=== PATIENT | female | born 1950 | race Caucasian/White ===

== ENCOUNTER 2017-03-20 17:51 | Emergency (ER) | payer SELFPAY ==
[~2017-03-20] VITALS: Ht 165.1 cm; Wt 72.6 kg
[2017-03-20] MEDS ORDERED: ATEN100 (18:02)
[2017-03-20] MEDS ORDERED: Hair, Skin & N1 EACH (18:02)
[2017-03-20] MEDS ORDERED: AVALIDE PO (18:02)
[2017-03-20] MEDS ORDERED: Norco 5-325 Ta1 EACH PO (19:30)
== END 2017-03-20 19:39 | disposition home or self-care (01) ==
LOC: ER 17:51
DX: S42.031A Displaced fracture of lateral end of right clavicle, initial encounter for closed fracture (principal); I10 Essential (primary) hypertension; W01.0XXA Fall on same level from slipping, tripping and stumbling without subsequent striking against object, initial encounter; Z79.899 Other long term (current) drug therapy
CPT/HCPCS: 73030; 99283

== ENCOUNTER → 2018-07-10 | Outpatient (CLI) | payer MEDICARE ==
[~2018-07-10] MED LIST: ATEN25 PO; AVALIDE PO; BENADRYL25 MG PO; CETI5 PO; Dyazide 37.5-21 EACH PO; FURO20 PO; GLIM2 PO; GLIP2.5ER; Hair, Skin & N1 EACH; LISINOPRIL PO; Norco 5-325 Ta1 EACH PO; ZYRTEC10 M1 PO; Zanaflex4 MG PO
== END | disposition home or self-care (01) ==
LOC: LAB 14:55 → LAB SHORT 14:55
DX: J01.90 Acute sinusitis, unspecified (principal)
CPT/HCPCS: 87070; 87205

== ENCOUNTER 2019-05-12 08:00 | Day surgery (SDC) | payer MEDICARE ==
[~2019-05-12] VITALS: Wt 74.6 kg
[2019-05-12 09:15] LABS: Creatinine (POC) 0.9 mg/dL (0.6-1.0)
--- NOTE | 2019-05-12 09:21 | NUR ---
0915: TO CT. VSS. HR 63-64. IV PLACED RIGHT AC. LABS DRAWN PER RADIOLOGY.
--- NOTE | 2019-05-12 10:12 | NUR ---
Discharge instructions reviewed with patient. Patient verbalizes understanding. Copy given to patient to take home. Ambulated to private car for ride home.
== END 2019-05-12 23:41 | disposition home or self-care (01) ==
LOC: CT 08:00 → ORD 08:00 → CT 09:00 → ORD 23:41
PROVIDERS: Internal Medicine Cardiovascular Disease
DX: I25.118 Atherosclerotic heart disease of native coronary artery with other forms of angina pectoris (principal); E11.42 Type 2 diabetes mellitus with diabetic polyneuropathy; I11.9 Hypertensive heart disease without heart failure; R55 Syncope and collapse; Z82.49 Family history of ischemic heart disease and other diseases of the circulatory system; Z79.82 Long term (current) use of aspirin; Z79.899 Other long term (current) drug therapy
CPT/HCPCS: 75574; 82565; 82947; Q9967

== ENCOUNTER 2020-10-06 12:58 | Day surgery (SDC) | payer MEDICARE ==
[~2020-10-06] VITALS: Ht 165.1 cm; Wt 71.3 kg
[~2020-10-06 12:58] MED LIST changes: +ACET325 PO; +ALPHA LIPOIC A600 M1 PO; +ALPR.5; +ALPR.5 PO; +ATOR20 PO; +ATOR40TA; +Amlodipine Bes2.5 MG; +Amlodipine Bes2.5 MG PO; +Aspir 8181 MG; +Aspir 8181 MG PO; +Coq-1030 MG PO; +DOCU100; +Flonase 0.05% N16 GM; +Florastor250 MG PO; +GLIM4; +HYDCHL25; +HYDCHL25 PO; +HYDR1TAB94 PO; +Isosorbide Mono30 MG PO; +LOSARTAN-HCTZ1 EACH PO; +Lisinopril-Hct1 EAC4 PO; +METO25ER; +METO25ER PO; +MULVITA PO; +NITR.4SL SL; +Nitroglycerin1 EAC3 TOP; +OMEP20ER; +OMEP20ER PO; +ONDA4ODT; +Percocet 5-3251 EACH; +RED YEAST RICE PO; +Robaxin-750750 MG PO; +Robaxin750 MG; +SYMBICORT 80-10.2 GM; +TOPROL XL25 MG PO; +ZYRTEC10 M2; +ZYRTEC10 M2 PO
[2020-10-06] MEDS ORDERED: OMEGA-3 + VITA200 ML PO (13:22)
[2020-10-06] MEDS ORDERED: LOSA50 PO (13:22)
--- NOTE | 2020-10-06 13:24 | NUR ---
10/06/20 1324 Liana Hinds TETRACAINE DROP PLACED AT [address] PER [address] ORDERS. PLEDGET PLACED AT [address] PER DR ORDERS.
== END 2020-10-06 14:55 | disposition home or self-care (01) ==
LOC: ORSCSDS 12:58
PROVIDERS: Ophthalmology
PROC: 08RJ3JZ Replacement of Right Lens with Synthetic Substitute, Percutaneous Approach (ICD-10-PCS; principal; 2020-10-06 14:15)
DX: H25.11 Age-related nuclear cataract, right eye (principal); I10 Essential (primary) hypertension; E11.9 Type 2 diabetes mellitus without complications; Z79.4 Long term (current) use of insulin; Z79.899 Other long term (current) drug therapy
CPT/HCPCS: 82947; A9270; J2001; J2250; J3010; J3301; J7040; V2632

== ENCOUNTER 2022-07-14 12:30 | Inpatient (IN) | payer MEDICARE ==
[~2022-07-14] VITALS: Ht 165.1 cm; Wt 70.4 kg
[~2022-07-14 12:30] MED LIST changes: +Guaifenesin Wit10 ML PO; +LOSA50 PO; +OMEGA-3 + VITA200 ML PO; +ROBITUSSIN30 MG/5 M7 PO
[2022-07-14 13:27] LABS: BASOPHILS ABSOLUTE AUTO 0.05 K/mm3 (0.00-0.23); BASOPHILS PERCENT AUTO 1 % (0-2); EOSINOPHILS ABSOLUTE AUTO 0.18 K/mm3 (0.00-0.68); EOSINOPHILS PERCENT AUTO 3 % (0-6); Hematocrit 26.6 % (33.0-51.0); Hemoglobin 8.8 g/dL (11.5-16.0); IMMATURE GRAN ABSOLUTE AUTO 0.27 K/mm3 (0.00-0.10); IMMATURE GRAN PERCENT AUTO 4 % (0-1); LYMPHOCYTES ABSOLUTE AUTO 1.26 K/mm3 (0.84-5.20); LYMPHOCYTES PERCENT AUTO 19 % (21-46); MONOCYTES ABSOLUTE AUTO 2.51 K/mm3 (0.16-1.47); MONOCYTES PERCENT AUTO 37 % (4-13); Mean Corpuscular HGB 34.1 pg (26.0-34.0); Mean Corpuscular HGB Conc 33.1 g/dL (31.5-36.5); Mean Corpuscular Volume 103 fL (80-100); Mean Platelet Volume 9.7 fL (9.1-12.4); NEUTROPHILS ABSOLUTE AUTO 2.48 K/mm3 (1.96-9.15); NEUTROPHILS PERCENT AUTO 37 % (41-73); NRBC ABSOLUTE 0.02 K/mm3 (0.00-0.02); NRBC Auto 0.3 /100 WBC (0.0-0.2); Platelet Count 99 K/mm3 (150-400); RDW Coefficient Variation 12.7 % (11.7-14.2); RDW Standard Deviation 47.4 fL (35.1-46.3); Red Blood Cell Count 2.58 M/mm3 (3.80-5.20); White Blood Cell Count 6.75 K/mm3 (4.00-11.30)
[2022-07-14 13:40] LABS: Magnesium, Blood 2.3 mg/dL (1.6-2.4)
[2022-07-14] MEDS ORDERED: NIAC500 PO (13:55)
[2022-07-14] MEDS ORDERED: POTASSIUM99 M3 PO (13:56)
[2022-07-14] MEDS ORDERED: UBID10 PO (13:56)
[2022-07-14] MEDS ORDERED: NITROGLYCERIN0.4 M3 (13:57)
[2022-07-14 14:26] LABS: Albumin/Globulin Ratio 1.3 (0.8-1.8); Bun/Creatinine Ratio 14.2 (12.0-20.0); Calcium, Blood 10.3 mg/dL (8.5-10.1); Creatinine, Blood 2.26 mg/dL (0.40-1.00); Potassium, Blood 3.6 mmol/L (3.5-5.5)
[2022-07-14 14:53] LABS: Base Excess Venous -0.8 mmol/L; Bicarbonate Venous 23.7 mmol/L (24.0-30.0); PCO2 Venous 46.3 mmHg (38-42); pH Blood Venous 7.34 (7.34-7.37)
[2022-07-14 15:03] LABS: Source, Urine Straight Cath
[2022-07-14 15:08] LABS: Appearance, Urine Clear (Clear); Bilirubin, Urine Neg (Neg); Blood, Urine 1+ (Neg); Color, Urine Yellow (P-Yellow); Glucose Qualitative, Urine Neg (Neg); Ketones, Urine Neg (Neg); Leukocyte Esterase, Urine 2+ (Neg); Nitrite, Urine Pos (Neg); Protein, Urine 2+ (Neg); Urobilinogen, Urine NORM (Normal)
[2022-07-14 15:17] LABS: Bacteria Many /hpf; Hyaline Casts 0-2 /lpf (0-2); Squamous Epithelial Cells Mod /hpf (Few); Transitional Epithelial Cells Few /hpf (0-Rare)
[2022-07-14 15:24] LABS: Ethanol (Alcohol), Blood, Med <3 mg/dL; Thyroid Stimulating Hormone 0.533 uIU/mL (0.360-4.800)
[2022-07-14 15:27] LABS: U Amphetamine Screen Not Detected; U Barbituate Screen Not Detected; U Benzodiazapine Screen Not Detected; U Buprenorphine Screen Not Detected; U Cannabinoids Screen Not Detected; U Cocaine Screen Not Detected; U Methadone Screen Not Detected; U Methamphetamine Screen Not Detected; U Opiates Screen Not Detected; U Oxycodone Screen Not Detected; U Phencyclidine Screen Not Detected; U Propoxyphene Screen Not Detected
[2022-07-14 18:36] LABS: Adenovirus Not Detected (NOT DETECT); Coronavirus 229E Not Detected (NOT DETECT); Coronavirus HKU1 Not Detected (NOT DETECT)
[2022-07-14 18:37] LABS: Bordetella pertussis Not Detected (NOT DETECT); Chlamydophila pneumoniae Not Detected (NOT DETECT); Coronavirus NL63 Not Detected (NOT DETECT); Coronavirus OC43 Not Detected (NOT DETECT); Human Metapneumovirus Not Detected (NOT DETECT); Human Rhinovirus/Enterovirus Not Detected (NOT DETECT); Influenza A/2009-H1 Not Detected (NOT DETECT); Influenza A/H1 Not Detected (NOT DETECT); Influenza A/H3 Not Detected (NOT DETECT); Influenza B Not Detected (NOT DETECT); Mycoplasma pneumoniae Not Detected (NOT DETECT); Parainfluenza Virus 1 Not Detected (NOT DETECT); Parainfluenza Virus 2 Not Detected (NOT DETECT); Parainfluenza Virus 3 Not Detected (NOT DETECT); Parainfluenza Virus 4 Not Detected (NOT DETECT); Respiratory Syncytial Virus Not Detected (NOT DETECT); SARS-Cov-2 (COVID-19), BioFire Not Detected (NOT DETECT)
[2022-07-14 19:03] VITALS: BP 193/65
--- NOTE | 2022-07-14 19:12 | NUR ---
ER ADMIT- PT RECIEVED FROM ER AT 1858. DURING TELEPHONE REPORT , ASKED BILINGUAL SALES REPRESENTATIVE TO REPEAT BP PREVIOUS SBP 183 AND ASK MD FOR PRN IF NEEDED. PT SBP 193 ON MEDFLOOR. CALLED MD TO NOTIFY. PRN ORDERED.
--- NOTE | 2022-07-14 19:17 | NUR ---
CALLED DR SELF- PT ARRIVED ON MEDICAL FLOOR WITH BP 193/65, NO PRNS IN THE EMAR. CALLED DR SELF FOR SOME PRN MEDICATIONS TO MANAGE THE PT BP. DR SELF WILL PLACE ORDERS VIVIANA. PASSED ON TO BEDSIDE RN.
[2022-07-14 20:37] VITALS: BP 143/79
--- NOTE | 2022-07-14 20:59 | NUR ---
BLOOD CONSENT I DID OFFER FOR THIS PT TO SIGN BLOOD CONSENT PAPER IN CHART. PT REFUSED. SHE PREFERS TO DISCUSS THE DECISION OF WETHER SHE WILL ACCEPT BLOOD OR NOT WITH HER DAUGHTER.
[2022-07-14 21:30] LABS: Uric Acid, Blood 9.4 mg/dL (2.6-6.0)
[2022-07-15] VITALS (41 sets, daily range): BP systolic 105–201; BP diastolic 47–119
[2022-07-15 06:18] LABS: Hematocrit 22.3 % (33.0-51.0); Hemoglobin 7.3 g/dL (11.5-16.0); Mean Corpuscular HGB Conc 32.7 g/dL (31.5-36.5); Mean Corpuscular Volume 104 fL (80-100); Mean Platelet Volume 10.2 fL (9.1-12.4); Platelet Count 93 K/mm3 (150-400); RDW Coefficient Variation 12.9 % (11.7-14.2); RDW Standard Deviation 47.8 fL (35.1-46.3); Red Blood Cell Count 2.15 M/mm3 (3.80-5.20); White Blood Cell Count 5.86 K/mm3 (4.00-11.30)
[2022-07-15 06:47] LABS: Albumin, Blood 3.1 g/dL (3.4-5.0); Albumin/Globulin Ratio 1.3 (0.8-1.8); Bilirubin, Total 0.6 mg/dL (0.1-1.0); Calcium, Blood 9.3 mg/dL (8.5-10.1); Creatinine, Blood 2.33 mg/dL (0.40-1.00); Globulin, Blood 2.4 g/dL (2.2-4.0); Potassium, Blood 3.8 mmol/L (3.5-5.5); Total Protein, Blood 5.5 g/dL (6.4-8.2)
--- NOTE | 2022-07-15 07:31 | NUR ---
SCATTERED BRUISING, BUT NO OPEN WOUNDS. PT IS SBA TO TOILET. NITROGLYCERIN AVAILABLE FOR CHEST PAIN/PRESSURE, PER PT HAS BEEN TAKING NEEDED FOR 3 YEARS. PT CONTINUES TO TREND HYPOGLYCEMIC, LAST NIGHT CBG WAS 33, 128, 59, 37. NO INSULIN ADMINISTERED. CONTINENT, HYPERTENSIVE OTHERWISE VSS, ORIENTED, COOPERATIVE. TYLENOL GIVEN X2 FOR TOE PAIN, PATIENT DROPPED FIRE POKER ON IT RECENTLY PRIOR TO ADMIT.
[2022-07-15 07:53] LABS: BASOPHILS PERCENT MAN 0 % (0-2); EOSINOPHILS ABSOLUTE MAN 0.23 K/mm3 (0.00-0.68); EOSINOPHILS PERCENT MAN 4 % (0-6); LYMPHOCYTES ABSOLUTE MAN 2.93 K/mm3 (0.84-5.20); LYMPHOCYTES PERCENT MAN 50 % (21-46); MONOCYTES ABSOLUTE MAN 0.82 K/mm3 (0.16-1.47); MONOCYTES PERCENT MAN 14 % (4-13); NEUTROPHILS ABSOLUTE MAN 1.87 K/mm3 (1.96-9.15); SEG NEUTROPHILS PERCENT MAN 32 % (41-73); TOTAL CELLS COUNTED 100
[2022-07-15 11:59] LABS: Hematocrit 25.1 % (33.0-51.0); Hemoglobin 8.2 g/dL (11.5-16.0)
--- NOTE | 2022-07-15 15:00 | NUR ---
Responded to rapid response call to pt's room 328. Pt's dtr Erum in hallway, tearful and on the phone. When she was off the phone, was present with Dr. Wilks filled Erum in on current status. Arlen had a seizure and was intubated. Plan is to get some radiology studies and transfer Arlen to the ICU. Emotional support provided to Erum. Erum's gradeschool ages son and her son's dad are present in the waiting room. Erum reports that her family is in [place] and she is attempting to update them. Earlier today Erum learned of her mom's new diagnosis of metastatic cancer, primary site unknown at this time. Zachary also has ARF. The new onset of seizures inaddition to the news she was given earlier today is overwhelming. Emotional support provided. Walked Erum down to the ICU waiting area and provided her with some water. Arlen's belongings taken to ICU 14. Erum told Dr. Wilks that she wasn't ready to lose her mom today, however she said if Arlen would require residential life support that she knows her mom would not like that. Did not get into a code status discussion with Erum at this time. She is already overwhelmed by the news and events of the day. Will continue to provide support prn and gentle advanced care planning in the coming days.
--- NOTE | 2022-07-15 15:35 | NUR ---
1435: CD REACTOR OPERATOR HEAD CALLED OVERHEAD TO 328. FOUND PT UNRESPONSIVE IN POSTICTAL STATE S/P SEIZURE WITNESSED BY DAUGHTER AT BEDSIDE. PT WAS FROTHING AT MOUTH. PT HAD A SECOND SEIZURE WHEN LÓPEZ AND STAFF WERE AT BEDSIDE. LEFT FACIAL DROOP PRONOUNCED, LEFT ARM STIFF AND ELEVATED AND BODY RHYTHMICALLY WRIGHTHING. PATIENT RECIEVED 4MG OF ATIVAN; 2MG 2 TIMES AND LABETOLOL IV 10MG FOR HYPERTENSION 200'S/100'S. ER STAFF WAS CALLED TO INTUBATE PATIENT. 7.5 ETT. GAVE KEPPRA IN ROOM 1000MG AND STARTED PROPOFOL AT 20MCG/KG/HR. PATIENT WAS TRANSPORTED TO CT FOR A STATE HEAD CT AND CHEST X-RAY. PT THEN WAS BROUGHT TO ICU 14. DR BUNN WAS CONSULTED FOR PULM. TONY Diggs RN RESUMED CARE.
--- NOTE | 2022-07-15 17:19 | NUR ---
SHIFT SUMMARY PATIENT WITH HEADACHE AND NAUSEA THROUGHOUT SHIFT, MEDICATED WITH TYELENOL AND TRAMADOL WELL ZOFRAN AND PER EMAR. BLOOD PRESSURES FLUCUATING THROUGHOUT SHIFT, DR GROVES AWARE. BG THIS AM 55 INCREASED TO 84 AFTER SNACK, PATIENT WAS ASYMPTOMATIC WITH LOW BLOOD SUGAR. SHELLEY ORIENTED X4 AND PROVIDING GOOD MEDICAL HISTORY WELL ACUTE EVENTS LEADING TO HOSPITAL STAY. DAUGHTER PRESENT THIS AFTERNOON, PATIENT BP INCREASED AGAIN, DR GROVES AWARE AND ORDERED LABETELOL, LABETELOL GIVEN, BP AND HEART RATE REDUCED AND PATIENT REPORTS DECREASE IN HEADACHE. LATER IN SHIFT AT 1426 PATIENT NOT ANSWERING DAUGHTER QUESTSIONS APPROPRIATELY, BP 166/85 AND PATIENT GRABBED HER DAUGHTERS ARM AND BEGAN SEIZING, DROOLING MOUTH AND BECAME UNRESPONSIVE. RAPID RESPONSE CALLED. MACHINE SETTER SHEET METAL ARRIVED 1429. PATIENT INTUBATED AND LEFT FLOOR AT [address]/XRAY AND TRANSFERRED TO ICU. REPORT GIVEN TO MIMI JIMENEZ
--- NOTE | 2022-07-15 17:35 | NUR ---
THIS ASSOCIATE PROGRAMMER ANALYST HAS REVIEWED AND AGREES WITH ALL NOTES AND ASSESSMENTS BY MIMI ANTONIA.
[2022-07-15 17:50] LABS: Hematocrit 23.2 % (33.0-51.0); Hemoglobin 7.5 g/dL (11.5-16.0)
[2022-07-15 17:56] LABS: Source, Urine Clean Catch
[2022-07-15 18:08] LABS: Appearance, Urine Clear (Clear); Bilirubin, Urine Neg (Neg); Blood, Urine 2+ (Neg); Glucose Qualitative, Urine Neg (Neg); Ketones, Urine Neg (Neg); Leukocyte Esterase, Urine Neg (Neg); Nitrite, Urine Neg (Neg); Protein, Urine 2+ (Neg); Urobilinogen, Urine NORM (Normal)
[2022-07-15 18:16] LABS: Color, Urine Pale Yellow (P-Yellow)
[2022-07-15 18:17] LABS: Bacteria Few /hpf; Squamous Epithelial Cells Few /hpf (Few); White Blood Cells, Urine 0-2 /hpf (0-5)
--- NOTE | 2022-07-15 18:21 | NUR ---
Checked in on pt and her dtr this evening. Arlen is on the vent and appears to be comfortable at this time. Erum is at bedside. Emotional support provided, encouraged self care for Erum. PC to continue to follow.
[2022-07-15 18:23] LABS: Anion Gap 7 mmol/L (6-16); Blood Urea Nitrogen 26 mg/dL (8-24); Bun/Creatinine Ratio 11.5 (12.0-20.0); CO2, Blood 24 mmol/L (21-32); Calcium, Blood 8.8 mg/dL (8.5-10.1); Chloride, Blood 109 mmol/L (98-108); Creatinine, Blood 2.26 mg/dL (0.40-1.00); Glomerular Filtration Rate 23 (60-); Glucose, Blood 204 mg/dL (70-99); Magnesium, Blood 2.1 mg/dL (1.6-2.4); Phosphorus, Blood 4.5 mg/dL (2.5-4.9); Potassium, Blood 4.1 mmol/L (3.5-5.5); Sodium, Blood 140 mmol/L (136-145)
[2022-07-15 18:40] LABS: Percent Saturation 40.6 % (15.0-50.0)
--- NOTE | 2022-07-15 18:49 | NUR ---
ASSUMPTION OF CARE PT ARRIVED TO ICU ROOM 14 FROM MEDICAL FLOOR VIA GURNEY. INTUBATED AND SEDATED UPON ARRIVAL. OGT TO LIS. PROPOFOL GTT @ 25. INITIALLY PT HAD NO COUGH OR GAG, NOT RESPONDING TO STIMULI. PT GIVEN TIME TO CLEAR RSI MEDICATIONS, NOW PT HAS COUGH, GAG, AND MOVING UPPER ARMS. PEDRO SOFT RESTRAINTS PLACED DUE TO PT REACHING UP MULTIPLE TIMES TO GRAB ETT. PROPOFOL TITRATED, NOW @ 35MCG'S. VENT SETTINGS AC-14/400/30/5 c SATS >95%. TEMP PROBE LINDSAY INSERTED DUE TO POSSIBLE RADHA AND NEEDING CRITICAL I&O'S, 600ML OUT AFTER INSERTION.
[2022-07-16] VITALS (64 sets, daily range): BP systolic 92–170; BP diastolic 44–107
[2022-07-16 03:48] LABS: BASOPHILS ABSOLUTE AUTO 0.03 K/mm3 (0.00-0.23); BASOPHILS PERCENT AUTO 1 % (0-2); EOSINOPHILS PERCENT AUTO 2 % (0-6); Hematocrit 21.2 % (33.0-51.0); IMMATURE GRAN ABSOLUTE AUTO 0.06 K/mm3 (0.00-0.10); IMMATURE GRAN PERCENT AUTO 1 % (0-1); LYMPHOCYTES ABSOLUTE AUTO 1.24 K/mm3 (0.84-5.20); LYMPHOCYTES PERCENT AUTO 29 % (21-46); MONOCYTES ABSOLUTE AUTO 1.18 K/mm3 (0.16-1.47); MONOCYTES PERCENT AUTO 27 % (4-13); Mean Corpuscular Volume 103 fL (80-100); Mean Platelet Volume 9.9 fL (9.1-12.4); NEUTROPHILS ABSOLUTE AUTO 1.71 K/mm3 (1.96-9.15); NEUTROPHILS PERCENT AUTO 40 % (41-73); Platelet Count 91 K/mm3 (150-400); RDW Standard Deviation 49.1 fL (35.1-46.3); Red Blood Cell Count 2.06 M/mm3 (3.80-5.20); White Blood Cell Count 4.32 K/mm3 (4.00-11.30)
[2022-07-16 04:09] LABS: Albumin, Blood 2.9 g/dL (3.4-5.0); Anion Gap 5 mmol/L (6-16); Blood Urea Nitrogen 27 mg/dL (8-24); Bun/Creatinine Ratio 10.5 (12.0-20.0); CO2, Blood 25 mmol/L (21-32); Calcium, Blood 9.1 mg/dL (8.5-10.1); Chloride, Blood 109 mmol/L (98-108); Creatinine, Blood 2.56 mg/dL (0.40-1.00); Glomerular Filtration Rate 20 (60-); Glucose, Blood 101 mg/dL (70-99); Phosphorus, Blood 4.3 mg/dL (2.5-4.9); Potassium, Blood 3.5 mmol/L (3.5-5.5); Sodium, Blood 139 mmol/L (136-145)
--- NOTE | 2022-07-16 05:57 | NUR ---
SHIFT SUMMARY: Pt stable overnight- vitals stable except for some borderline low BPs on propofol, rate decreased to 30mcg/kg/min due to hypotension. Pt becomes restless and coughs with patient care but falls back asleep when left alone. On minimal ventilator settings. Minimal output from OG tube- now clamped. Adequate urine output. 0500- sedation weaned anticipating SBT. 0515- sedation turned off for SBT. Pt unable to tolerate no sedation- she coughs and gags continuously, tries to sit up and reach for the tube. Unable to be consoled. On minimal sedation, she follows commands, can move all four extremities and nod head appropriately. However, she is extremely agitated off sedation and could not tolerate SBT. Per RT- she is probably appropriate for extubation from a respiratory standpoint. No seizure activity overnight. Will not be able to do EEG while pt still intubated because sedation must be held.
--- NOTE | 2022-07-16 07:11 | NUR ---
Assumed care. Report received from tanesha LE. Pt sedated and ventilated via ETT. Vent settings: AC/VC/14/400/5/25%. OG tube in place, clamped. Propofol infusing at 30 mcg/kg/min, Sodium Bicarb infusing at 75 ml/hr. Mcintosh catheter in place, draining to gravity. No acute needs at time of report, VS stable. Continue to monitor.
--- NOTE | 2022-07-16 13:22 | NUR ---
EXTUBATION. Pt extubated at 1140 with good results. See RT documentation for details. Pt on 02 via NC at 3 L/min, sats >95%.
--- NOTE | 2022-07-16 17:29 | NUR ---
Pt transferred to medical floor. Chest CT completed en-route. All personal belongings sent up with patient's sister and daughter. VS stable at time of transfer.
--- NOTE | 2022-07-16 19:43 | NUR ---
PT TRANSFERED FROM ICU. PT AND FAMILY ORIENTED TO ROOM. PT RESTLESS UPON ARRIVING BUT DAUGHTER ABLE TO HELP PT RELAX. PT DROWSY BUT RESPONDS TO QUESTIONS. A&OX3 AND COOPERATIVE OF CARE. IMPULSIVE. PT C/O FEELING ANXIOUS AT END OF SHIFT. TEARFUL AND ABLE TO BE COMFORTED BY DAUGHTER. DR CALLED FOR ANXIETY MEDS. ORDERS GIVEN FOR ONE TIME DOSE OF ATIVAN. BED IN LOWEST POSITION AND CALL LIGHT IN REACH.
[2022-07-17 04:41] LABS: Hematocrit 23.5 % (33.0-51.0); Hemoglobin 7.7 g/dL (11.5-16.0); Mean Corpuscular HGB 33.5 pg (26.0-34.0); Mean Corpuscular HGB Conc 32.8 g/dL (31.5-36.5); Mean Corpuscular Volume 102 fL (80-100); Mean Platelet Volume 9.8 fL (9.1-12.4); Platelet Count 105 K/mm3 (150-400); White Blood Cell Count 8.18 K/mm3 (4.00-11.30)
[2022-07-17 04:54] LABS: Albumin, Blood 3.3 g/dL (3.4-5.0); Anion Gap 9 mmol/L (6-16); Blood Urea Nitrogen 27 mg/dL (8-24); Bun/Creatinine Ratio 9.9 (12.0-20.0); CO2, Blood 26 mmol/L (21-32); Chloride, Blood 108 mmol/L (98-108); Creatinine, Blood 2.73 mg/dL (0.40-1.00); Glomerular Filtration Rate 18 (60-); Glucose, Blood 167 mg/dL (70-99); Magnesium, Blood 2.1 mg/dL (1.6-2.4); Phosphorus, Blood 5.2 mg/dL (2.5-4.9); Potassium, Blood 3.7 mmol/L (3.5-5.5); Sodium, Blood 143 mmol/L (136-145)
--- NOTE | 2022-07-17 05:31 | NUR ---
SHIFT SUMMARY 71 YR F TRANSFERED FROM ICU ON 07/16/22. FULL CODE. PT HAD FAMILY AT BEDSIDE THAT WERE ABLE TO HELP KEEP HER CALM AT BEGINNING OF SHIFT. SHE APPEARED TO BE AGITATED AND WAS GIVEN ATIVAN. SHE SLEPT FOR A FEW HOURS BUT WOKE UP CONFUSED, AGITATED, AND NON REDIRECTABLE. SOFT WRIST RESTRAINTS WERE APPLIED BY ANOTHER NURSE WHILT THIS NURSE WAS AT LUN[facility] PT KEPT TRYING TO GET UP OUT OF BED. SHE IS A FALL RISK AND WAS RESTRAINED FOR HER OWN SAFETY. SHE ALSO BECAME COMBATIVE AND WAS SLAPPING AND KICKING AT THE NURSES. SHE FELL BACK ASLEEP AND WRIST RESTRAINTS WERE REMOVED. NO ORDER WAS OBTAINED THEY WERE ON FOR ONLY ABOUT 20 MINUTES. PT SLEPT FOR ANOTHER HOUR OR SO AND WOKE UP VERY AGITATED AGAIN. SHE TRIED TO GET OUT OF BED OVER AND OVER. AGAIN WRIST RESTRAINTS WERE APPLIED, BUT AGAIN SHE FELL BACK ASLEEP AND RESTRAINTS WERE REMOVED AFTER A SHORT PERIOD OF TIME. ANOTHER DOSE OF ATIVAN WAS GIVEN WELL. AT THIS TIME SHE IS CURRENTLY ASLEEP.
[2022-07-17 06:12] LABS: BASOPHILS PERCENT MAN 0 % (0-2); EOSINOPHILS PERCENT MAN 5 % (0-6); LYMPHOCYTES % ATYPICAL MANUAL 1 % (0-0); LYMPHOCYTES ABSOLUTE MAN 2.04 K/mm3 (0.84-5.20); LYMPHOCYTES PERCENT MAN 24 % (21-46); MONOCYTES PERCENT MAN 16 % (4-13); MYELOCYTE ABSOLUTE MAN 0.24 K/mm3 (0.00-0.00); MYELOCYTE PERCENT MAN 3 % (0-0); NEUTROPHILS ABSOLUTE MAN 4.17 K/mm3 (1.96-9.15); SEG NEUTROPHILS PERCENT MAN 51 % (41-73); TOTAL CELLS COUNTED 100
[2022-07-17 07:15] VITALS: BP 166/75
--- NOTE | 2022-07-17 09:48 | NUR ---
RESP RATE NOTED PT HAVING SNORIOUS RESP. CHECKED HER SPO2. SAT 60% ON RA. JAW THRUSTED AND SAT HER UP. SAT IMPROVED TO 84% WITH [place] THRUST. APPLIED 4L OXYGEN. HR DROPPED FROM 99 TO 84 AND SPO2 IMPORVEWD TO 99%. WEANED TO 2L N/C. HOB 45 DEGREES. NO FURTHER SNORIOUS RESP NOTED. CONTINOUS BIOX ON LEFT HAND. DR GROVES CALLED. CONTINUE POC.
[2022-07-17 11:09] VITALS: BP 164/65
--- NOTE | 2022-07-17 11:34 | NUR ---
URINE PT AWAKENING A BIT. SHE WAS HUGELY INCONTINENT OF URINE. ATTENDS DRIPPING, CANSECO SOAKED. BED BATH GIVEN. CLEAN, DRY LINNENS PLACED. PT TOLERATED WELL AFTER TURNING. SPO2 97% ON 2L N/C. CONTINUE POC.
--- NOTE | 2022-07-17 12:28 | NUR ---
[facility] , MERCEDES TAYLORBRIANNA, GAVE VERBAL PERMISSION TO SANDY TIAN RN AND KRIS LIRA RN, FOR PT DAUGHTER MARIIA TAYLOR TO MAKE [facility] CARE DECISIONS FOR THE PT. CONTINUE POC.
[2022-07-17 15:54] VITALS: BP 142/57
--- NOTE | 2022-07-17 16:49 | NUR ---
NOTE PT RESTING. SHE AROUSES EASILY TO NAME. FAMILY AT BEDSIDE. ATTEMPTED TO WEAN TO RA. SHE DESAT TO 86% HR 95 BPM. REPLACED 1L O2 VIA N/C. PT HAS A DEEP, MOIST COUGH. SHE RECOGNIZED HER DAUGHTER, REBECCA. VSS. D5NS AT 100 ML/HR INFUSING. 3 INCONTINET VOIDS TODAY. URINE LIGHT YELLOW. CONTINUE POC.
--- NOTE | 2022-07-17 18:07 | NUR ---
Pt moved from ICU to Medical floor last evening after successful extubation. However, pt was unable to have CT today as she remains sedated, unable to follow commands and requires HOB raised due to desat. Daughter Carol and pt's younger sister remain at bedside. New areas found on CT of chest, appears to be cancer, this time in bone and spine. Both Erum and pt's sister are aware of the gravity of the situation, but remain optimistic.
[2022-07-17 19:16] VITALS: BP 161/53
--- NOTE | 2022-07-18 03:51 | NUR ---
SHIFT UNREMARKABLE. PT WAS AOX4 ON ASSESSMENT, VERY PLEASANT, COOPERATIVE WITH CARE, CALLS APPROPRIATELY. MILD RIGHT SIDED WEAKNESS, MORE PRONOUCED ON LOWER EXTREMITIES THAN UPPER. PT HAS DENIED PAIN OR DISCOMFORT THROUGHOUT SHIFT. SATTING >92% ON 1 L O2 OVER COURSE OF NIGHT. D5W WITH NORMAL SALINE RUNNING THROUGHOUT SHIFT. IV MEDICATIONS ADMINISTERED PER SCHEDULE WITHOUT DIFFICULTY. HELD PO MEDS DUE TO NPO STATUS. TELE ON THROUGH NIGHT, HAS BEEN RUNNING NORMAL SINUS RYTHYM. OCCASIONAL CONGESTED COUGH. 2 PERSON ASSIST TO BEDSIDE COMMODE. BED LOCKED IN LOWEST POSITION. INCLINE REMAINING AT 30-45 DEGREES. CALL LIGHT LEFT WITHIN REACH.
[2022-07-18 04:10] VITALS: BP 175/63
[2022-07-18 04:45] LABS: Hematocrit 24.3 % (33.0-51.0); Hemoglobin 7.9 g/dL (11.5-16.0); Mean Corpuscular HGB 33.8 pg (26.0-34.0); Mean Corpuscular HGB Conc 32.5 g/dL (31.5-36.5); Mean Corpuscular Volume 104 fL (80-100); Mean Platelet Volume 9.7 fL (9.1-12.4); Platelet Count 101 K/mm3 (150-400); RDW Standard Deviation 48.5 fL (35.1-46.3); Red Blood Cell Count 2.34 M/mm3 (3.80-5.20); White Blood Cell Count 6.38 K/mm3 (4.00-11.30)
[2022-07-18 05:01] LABS: Albumin, Blood 3.3 g/dL (3.4-5.0); Anion Gap 3 mmol/L (6-16); Blood Urea Nitrogen 24 mg/dL (8-24); Bun/Creatinine Ratio 9.3 (12.0-20.0); CO2, Blood 27 mmol/L (21-32); Calcium, Blood 9.5 mg/dL (8.5-10.1); Chloride, Blood 115 mmol/L (98-108); Creatinine, Blood 2.58 mg/dL (0.40-1.00); Glomerular Filtration Rate 20 (60-); Glucose, Blood 188 mg/dL (70-99); Phosphorus, Blood 3.8 mg/dL (2.5-4.9); Potassium, Blood 3.2 mmol/L (3.5-5.5); Sodium, Blood 145 mmol/L (136-145)
[2022-07-18 05:33] LABS: BAND PERCENT MAN 3 % (0-8); BASOPHILS ABSOLUTE MAN 0.06 K/mm3 (0.00-0.23); BASOPHILS PERCENT MAN 1 % (0-2); EOSINOPHILS ABSOLUTE MAN 0.12 K/mm3 (0.00-0.68); EOSINOPHILS PERCENT MAN 2 % (0-6); LYMPHOCYTES % ATYPICAL MANUAL 2 % (0-0); LYMPHOCYTES ABSOLUTE MAN 1.46 K/mm3 (0.84-5.20); LYMPHOCYTES PERCENT MAN 21 % (21-46); METAMYELOCYTE ABSOLUTE MAN 0.06 K/mm3 (0.00-0.00); METAMYELOCYTE PERCENT MAN 1 % (0-0); MONOCYTES ABSOLUTE MAN 1.46 K/mm3 (0.16-1.47); MONOCYTES PERCENT MAN 23 % (4-13); MYELOCYTE ABSOLUTE MAN 0.19 K/mm3 (0.00-0.00); MYELOCYTE PERCENT MAN 3 % (0-0); NEUTROPHILS ABSOLUTE MAN 2.99 K/mm3 (1.96-9.15); SEG NEUTROPHILS PERCENT MAN 44 % (41-73); TOTAL CELLS COUNTED 100
[2022-07-18 07:03] VITALS: BP 167/70
[2022-07-18 16:51] VITALS: BP 185/63
[2022-07-18 17:11] LABS: Albumin, Blood 3.4 g/dL (3.4-5.0); Anion Gap 3 mmol/L (6-16); Blood Urea Nitrogen 22 mg/dL (8-24); Bun/Creatinine Ratio 9.1 (12.0-20.0); CO2, Blood 25 mmol/L (21-32); Calcium, Blood 10.3 mg/dL (8.5-10.1); Chloride, Blood 117 mmol/L (98-108); Creatinine, Blood 2.43 mg/dL (0.40-1.00); Glomerular Filtration Rate 21 (60-); Glucose, Blood 155 mg/dL (70-99); Phosphorus, Blood 3.1 mg/dL (2.5-4.9); Potassium, Blood 3.6 mmol/L (3.5-5.5); Sodium, Blood 145 mmol/L (136-145)
--- NOTE | 2022-07-18 18:41 | NUR ---
Patient AOx2-3, family states patient is more awake today & alert. ANSWERING SERVICE OPERATOR eval done & diet ordered. Patient continues to have chronic hacking cough, pt/family states this is baseline. D5W infusing continosuly. Patient OOB ambulating halls, steady gait, SBA for safety. Vitals stable. Will continue plan of care.
[2022-07-18 19:29] VITALS: BP 189/72
[2022-07-18 20:25] VITALS: BP 157/62
[2022-07-19] VITALS (7 sets, daily range): BP systolic 124–171; BP diastolic 44–65
[2022-07-19 05:35] LABS: Albumin, Blood 3.2 g/dL (3.4-5.0); Anion Gap 4 mmol/L (6-16); Blood Urea Nitrogen 23 mg/dL (8-24); CO2, Blood 25 mmol/L (21-32); Chloride, Blood 114 mmol/L (98-108); Creatinine, Blood 2.56 mg/dL (0.40-1.00); Glomerular Filtration Rate 20 (60-); Glucose, Blood 123 mg/dL (70-99); Magnesium, Blood 1.8 mg/dL (1.6-2.4); Phosphorus, Blood 3.2 mg/dL (2.5-4.9); Potassium, Blood 3.5 mmol/L (3.5-5.5); Sodium, Blood 143 mmol/L (136-145)
--- NOTE | 2022-07-19 06:07 | NUR ---
SHIFT SUMMARY; PT IS AXO X2-3 AND VERY ANXIOUS TONIGHT. PTS DAUGHTER IS AT BEDSIDE T/O THE NIGHT. THE PTS DAUGHTER IS VERY CONCERNED HERSELF THAT THE PT IS GOING TO HAVE ANOTHER SEIZURE. I GAVE THE PT 25MG OF ATARAX, 5MG OF MELATONIN AND 0.5MG OF ATIVAN AND THE PT IS STILL VERY RESTLESS. THE PT HAS YET TO SLEEP TONIGHT. THE PTS BLOOD PRESSURE WERE VERY HIGH THIS EVENING, WELL THE PT REPORTED 4/10 CHEST PAIN. I GAVE THE PT A NITRO AND LABETALOL WITH GOOD EFFECT. THE PTS BLOOD PRESURE WAS ELEVTAED AGAIN THIS MORNING, SO I GAVE LABETALOL AGAIN AND HER BLOOD PRESSURE WENT DOWN BUT NOT NEAR MUCH. THE PT WAS ON 2L NC OFF AND ON T/O THE NIGHT WITH 02 SATS >92%. THE PT HAS BEEN BORDELINE FEBRILE T/O THE NIGHT WELL. THE PTS ORAL TEMPERATURE THIS MORNING WAS 100.0, PRN TYLENOL TO BE ADMINISTERED. THE PT HAS MADE REMARKS T/O THE NIGHT LIKE " I AM HAVING BIZZARE THOUGHTS" OR "I AM HAVING AN OUT OF BODY EXPERIENCE". WHEN I ASK THE PT TO ELABORATE ON WHAT EXACTLY THAT MEANS THE PT LOOSES HER THOUGHT PROCESS AND IS UNABLE TO TELL ME WHAT IT IS THAT SHE MEANS BY THAT. PRESENTLY THE OPT IS LYING IN BED WITH THE BED IN THE LOWEST POSITION, HER DAUGHTER AT BEDSIDE AND HER CALL LIGHT WITHIN REACH.
--- NOTE | 2022-07-19 17:04 | NUR ---
SHIFT SUMMARY PT IS ALERT AND ORIENTED X4. SURROUNDED BY FAMILY. PT, FAMILY, MD AND RN ALL AGREE THAT PT NEEDS TO GET SLEEP. GROUPING CARES BEST WE CAN. NO ACUTE CHANGES THIS SHIFT. TREATED HEADACHE PER EMAR. PT WAS ABLE MAKE NEEDS KNOWN. PT WAS ABLE TO GET A GOOD 5 HR OR SO SLEEP.
[2022-07-19 19:27] LABS: Source, Urine Clean Catch
[2022-07-19 19:35] LABS: Appearance, Urine Clear (Clear); Bilirubin, Urine Neg (Neg); Blood, Urine 1+ (Neg); Color, Urine Yellow (P-Yellow); Glucose Qualitative, Urine Neg (Neg); Ketones, Urine Neg (Neg); Leukocyte Esterase, Urine Neg (Neg); Nitrite, Urine Neg (Neg); Protein, Urine 2+ (Neg); Urobilinogen, Urine NORM (Normal); pH, Urine 6.5 (5.0-8.0)
[2022-07-19 19:58] LABS: Bacteria Rare /hpf; Squamous Epithelial Cells Few /hpf (Few); Transitional Epithelial Cells Rare /hpf (0-Rare)
--- NOTE | 2022-07-20 04:21 | NUR ---
SUMMARY: PATIENT DID WELL OVERNIGHT. AMBULATED UP TO RESTROOM WITH 1X ASSIST. PATIENT WAS ABLE TO GET SOME SLEEP BETWEEN 9-12. WOKE UP WITH NAUSEA. TRIED TO EAT SOME CRACKERS AND DRINK TEA WITH NO RELIEF AND PRN NOT AVAILABLE. GAVE 1X DOSE NITRO FOR CHEST PAIN. CALLED PROVIDER RECIEVED ORDER FOR REGLAN PATIENT SLEPT AFTER MEDS. SLEPT FROM 2AM ON. VSS. BED ALARM ON.
[2022-07-20 05:41] VITALS: BP 115/44
[2022-07-20 07:47] VITALS: BP 145/63
[2022-07-20 14:26] LABS: Stool Occult Bld Immuno 1 Negative (NEGATIVE)
[2022-07-20 17:10] VITALS: BP 137/51
--- NOTE | 2022-07-20 19:01 | NUR ---
SHIFT SUMMARY PT ALERT AND ORIENTED X4. IN GOOD SPIRITS. TREATED NAUSEA PER EMAR
[2022-07-20 19:18] VITALS: BP 139/56
[2022-07-21 02:00] VITALS: BP 152/60
--- NOTE | 2022-07-21 05:16 | NUR ---
SUMMARY: PATIENT 24 HOUR URINE COLLECTION STARTED 07/20/22 290. VSS OVERNIGHT. IV ABX GIVEN. IV KEPPRA GIVEN. PATIENT AMBULATES OUT OF BED WITH 1X ASSIST. PATIENT MOSTLY SLEPT WELL OVERNIGHT. OCCASIONAL EPISODES OF NAUSEA, IMPROVED WITH MEDS. CALL LIGHT IN REACH. BED ALARM ON.
[2022-07-21 06:29] LABS: Albumin, Blood 3.1 g/dL (3.4-5.0); Anion Gap 6 mmol/L (6-16); Blood Urea Nitrogen 27 mg/dL (8-24); Bun/Creatinine Ratio 9.4 (12.0-20.0); CO2, Blood 25 mmol/L (21-32); Calcium, Blood 10.2 mg/dL (8.5-10.1); Chloride, Blood 115 mmol/L (98-108); Creatinine, Blood 2.88 mg/dL (0.40-1.00); Glomerular Filtration Rate 17 (60-); Glucose, Blood 114 mg/dL (70-99); Phosphorus, Blood 3.8 mg/dL (2.5-4.9); Potassium, Blood 3.5 mmol/L (3.5-5.5); Sodium, Blood 146 mmol/L (136-145)
[2022-07-21 07:16] VITALS: BP 139/62
[2022-07-21 14:48] VITALS: BP 168/64
[2022-07-21 17:15] LABS: Hematocrit 22.6 % (33.0-51.0); Hemoglobin 7.2 g/dL (11.5-16.0); Mean Corpuscular HGB 33.8 pg (26.0-34.0); Mean Corpuscular HGB Conc 31.9 g/dL (31.5-36.5); Mean Corpuscular Volume 106 fL (80-100); Mean Platelet Volume 9.9 fL (9.1-12.4); NRBC ABSOLUTE 0.09 K/mm3 (0.00-0.02); NRBC Auto 1.1 /100 WBC (0.0-0.2); Platelet Count 95 K/mm3 (150-400); RDW Coefficient Variation 13.1 % (11.7-14.2); RDW Standard Deviation 50.2 fL (35.1-46.3); Red Blood Cell Count 2.13 M/mm3 (3.80-5.20); White Blood Cell Count 8.34 K/mm3 (4.00-11.30)
[2022-07-21 17:30] LABS: Albumin, Blood 3.3 g/dL (3.4-5.0); Albumin/Globulin Ratio 1.3 (0.8-1.8); Bilirubin, Total 0.9 mg/dL (0.1-1.0); Bun/Creatinine Ratio 9.7 (12.0-20.0); Calcium, Blood 10.7 mg/dL (8.5-10.1); Creatinine, Blood 2.69 mg/dL (0.40-1.00); Globulin, Blood 2.6 g/dL (2.2-4.0); Potassium, Blood 3.7 mmol/L (3.5-5.5); Total Protein, Blood 5.9 g/dL (6.4-8.2); Uric Acid, Blood 10.4 mg/dL (2.6-6.0)
[2022-07-21 18:16] LABS: Cancer Antigen 125 17.4 U/mL (1.5-35.0); Cancer Antigen 19-9 26.4 U/mL (2.0-37.0); Carcinoembryonic Antigen 2.2 ng/mL (0.0-3.0)
[2022-07-21 18:51] LABS: BAND PERCENT MAN 6 % (0-8); BASOPHILS PERCENT MAN 0 % (0-2); EOSINOPHILS ABSOLUTE MAN 0.33 K/mm3 (0.00-0.68); EOSINOPHILS PERCENT MAN 4 % (0-6); LYMPHOCYTES ABSOLUTE MAN 2.41 K/mm3 (0.84-5.20); LYMPHOCYTES PERCENT MAN 29 % (21-46); METAMYELOCYTE ABSOLUTE MAN 0.16 K/mm3 (0.00-0.00); METAMYELOCYTE PERCENT MAN 2 % (0-0); MONOCYTES PERCENT MAN 18 % (4-13); MYELOCYTE ABSOLUTE MAN 0.08 K/mm3 (0.00-0.00); MYELOCYTE PERCENT MAN 1 % (0-0); NEUTROPHILS ABSOLUTE MAN 3.83 K/mm3 (1.96-9.15); SEG NEUTROPHILS PERCENT MAN 40 % (41-73); TOTAL CELLS COUNTED 100
[2022-07-21 19:33] VITALS: BP 157/57
--- NOTE | 2022-07-21 20:02 | NUR ---
SHIFT SUMMARY PT A&O X 4. CAN BE FORGETFUL. MEDICATED FOR C/O NAUSEA PER EMAR WITH GOOD RELIEF STATED BY PT. IS 1 STDBY ASSIST FOR RESTROOM USE. 24 HR URINE COLLECTION DONE AT 1745 AND SENT TO LAB. PT STATES SHE HAS BEEN MORE TIRED TODAY AND WANTED TO REST. DID GET UP TO SIT IN THE CHAIR FOR A FEW HOURS. APPETITE IS MARGINAL. DR. WOODARD CONSULT REQUEST DONE & MD ORDERED LABS. PT IS SCHEDULED FOR A CT GUIDED BIOPSY OF HER TUMOR. WILL LIKELY HAPPEN ON SATURDAY.
[2022-07-22] VITALS (10 sets, daily range): BP systolic 145–186; BP diastolic 51–75
[2022-07-22 05:39] LABS: Hematocrit 20.2 % (33.0-51.0); Hemoglobin 6.6 g/dL (11.5-16.0)
--- NOTE | 2022-07-22 05:54 | NUR ---
SHIFT SUMMARY- PT IS A/O, PLESANT AND COOPERATIVE. SHE SLEPT FOR MOST OF THIS SHIFT. SHE WAS UP TO THE CHAIR ONCE THIS SHIFT. CURRENTLY IN BED SLEEPING. HER BED IS IN THE LOW POSITION AND CALL LIGHT IS WITIN REACH.
[2022-07-22 06:13] LABS: Albumin, Blood 3.1 g/dL (3.4-5.0); Anion Gap 5 mmol/L (6-16); Blood Urea Nitrogen 29 mg/dL (8-24); Bun/Creatinine Ratio 10.4 (12.0-20.0); CO2, Blood 25 mmol/L (21-32); Calcium, Blood 10.4 mg/dL (8.5-10.1); Chloride, Blood 115 mmol/L (98-108); Creatinine, Blood 2.78 mg/dL (0.40-1.00); Glomerular Filtration Rate 18 (60-); Glucose, Blood 103 mg/dL (70-99); Magnesium, Blood 1.9 mg/dL (1.6-2.4); Phosphorus, Blood 4.1 mg/dL (2.5-4.9); Potassium, Blood 3.5 mmol/L (3.5-5.5); Sodium, Blood 145 mmol/L (136-145)
--- NOTE | 2022-07-22 20:02 | NUR ---
SHIFT SUMMARY A&O X 3. VSS. IS PLEASANT & COOPERATIVE WITH ALL CARE. MD ORDERED 1 UNIT OF PRBC'S TO INFUSE TODAY FOR A HGB OF 6.6. BLOOD OBTAINED PER PROTOCOL ALTHOUGH PT WOULD NOT SIGN CONSENT. SHE REPORTS CONCERNS REGARDING THE POSSIBILITY THAT THE DONOR HAD THE COVID VACCINE. EDUCATED PT REGARDING DONOR BLOOD HOWEVER SHE REFUSED THE BLOOD STATING SHE WANTS TO TALK TO FAMILY. AFTER DISCUSSING WITH FAMILY, PT ULTIMATELY DECIDED TO RECEIVE THE BLOOD. TRANSFUSION STARTED PER PROTOCOL WITH NO COMPLICATIONS. VSS THROUGHOUT TRANSFUSION. CALL LIGHT WITHIN REACH, BED IN LOW POSITION. PT IS STDBY ASSIST FOR RESTROOM USE. APPETITE IS MARGINAL.
[2022-07-23 02:00] VITALS: BP 158/59
--- NOTE | 2022-07-23 05:57 | NUR ---
SUMMARY: NO ACUTE EVENTS OVERNIGHT. PATIENT RECIEVED BLOOD TRANSFUSION COMPLETED AT START OF SHIFT THEN [facility] MED GIVEN. PATIENT AOX4 1 X ASSIST UP TO RESTROOM. CALL LIGHT IN REACH.
[2022-07-23 07:09] LABS: HAPTOGLOBIN <10 mg/dL (37-355); IMMUNOGLOBULIN A, QN, SERUM 19 mg/dL (87-352); IMMUNOGLOBULIN G, QN, SERUM 571 mg/dL (586-1602); IMMUNOGLOBULIN M, QN, SERUM 5 mg/dL (26-217)
[2022-07-23 07:51] VITALS: BP 166/67
[2022-07-23 08:03] LABS: Hematocrit 26.4 % (33.0-51.0); Hemoglobin 8.7 g/dL (11.5-16.0)
[2022-07-23 10:08] LABS: International Normalized Ratio 1.18; Prothrombin Time Results 12.3 Sec (9.7-11.5)
[2022-07-23 10:33] LABS: Bilirubin, Direct 0.5 mg/dL (0.0-0.3); Bilirubin, Indirect 0.9 mg/dL (0.1-0.7); Bilirubin, Total 1.4 mg/dL (0.1-1.0)
--- NOTE | 2022-07-23 10:59 | NUR ---
DR MENDOZA RADIOLOGY, STATES WANTS PET SCAN PRIOR TO BONE BIOPSY, CALLED DR GROVES, SHE TO TALK TO RADIOLOGY. FAMILY REQUEST DR JOLLEY CANNOT FLY, TO REIMBURSE FLIGHT. TO BRING RX LATER TODAY
[2022-07-23] MEDS ORDERED: AMLO5 PO (12:22)
[2022-07-23] MEDS ORDERED: ACET325 PO (12:22)
[2022-07-23] MEDS ORDERED: LEVE500 PO (12:23)
[2022-07-23] MEDS ORDERED: DOCU100 PO (12:23)
[2022-07-23] MEDS ORDERED: ONDA4 PO (12:23)
[2022-07-23 15:55] VITALS: BP 141/54
--- NOTE | 2022-07-23 16:10 | NUR ---
PT HAPPY TO GO HOME. DISCHARGE REVIEWED WITH PT AND DAUGHTER. IV PULLED INTACT BY AIDE. TELE REMOVED AND RETURNED. PT VERBALIZED UNDERSTANDING MEDS AND INST. VERBALIZED UNDERSTANDS TO CONTACT FOR PET SCAN PER NOTES, FOLLOWUP APPTS. AND NEW MEDS. WHEELED TO DOOR BY JOAQUIM AT 1622
[2022-07-24 17:07] LABS: A/G RATIO 1.9 (0.7-1.7); ALBUMIN 3.6 g/dL (2.9-4.4); ALPHA-1-GLOBULIN 0.2 g/dL (0.0-0.4); ALPHA-2-GLOBULIN 0.4 g/dL (0.4-1.0); BETA GLOBULIN 0.5 g/dL (0.7-1.3); GAMMA GLOBULIN 0.8 g/dL (0.4-1.8); GLOBULIN, TOTAL 1.9 g/dL (2.2-3.9); IMMUNOGLOBULIN A, QN, SERUM 20 mg/dL (87-352); IMMUNOGLOBULIN G, QN, SERUM 573 mg/dL (586-1602); IMMUNOGLOBULIN M, QN, SERUM 5 mg/dL (26-217); M-SPIKE 0.3 g/dL (Not Observed); PROTEIN, TOTAL, SERUM 5.5 g/dL (6.0-8.5)
[2022-07-24 22:07] LABS: ALBUMIN 3.8 g/dL (2.9-4.4); ALPHA-1-GLOBULIN 0.2 g/dL (0.0-0.4); ALPHA-2-GLOBULIN 0.4 g/dL (0.4-1.0); BETA GLOBULIN 0.6 g/dL (0.7-1.3); GAMMA GLOBULIN 0.7 g/dL (0.4-1.8); GLOBULIN, TOTAL 1.9 g/dL (2.2-3.9); IMMUNOGLOBULIN A, QN, SERUM 20 mg/dL (87-352); IMMUNOGLOBULIN G, QN, SERUM 564 mg/dL (586-1602); IMMUNOGLOBULIN M, QN, SERUM <5 mg/dL (26-217); M-SPIKE 0.3 g/dL (Not Observed); PROTEIN, TOTAL, SERUM 5.7 g/dL (6.0-8.5)
[2022-07-25 02:22] LABS: COMPLEMENT C3, SERUM 57 mg/dL (82-167); COMPLEMENT C4, SERUM 34 mg/dL (12-38)
[2022-07-25 15:12] LABS: M-SPIKE, % 84.9 % (Not Observed); M-SPIKE, MG/24 HR 6158.3 mg/24 hr (Not Observed); PROTEIN,TOTAL,URINE 537.3 mg/dL (Not Estab.)
[2022-07-27 13:13] LABS: ATYPICAL PANCA <1:20 titer (Neg:<1:20); CYTOPLASMIC (C-ANCA) <1:20 titer (Neg:<1:20); PERINUCLEAR (P-ANCA) <1:20 titer (Neg:<1:20)
[2022-07-28] MEDS ORDERED: GLIMEPIRIDE4 MG PO (16:13)
[2022-07-28] MEDS ORDERED: LOSA50 PO (16:13)
[2022-07-28] MEDS ORDERED: NITROGLYCERIN0.4 M3 SL (16:14)
== END 2022-07-23 16:12 | disposition home health service (06) | DRG 637 ==
LOC: ER 12:30 → MEDS 12:31 → ICUW 07-15 10:33 → MEDS 07-16 17:06 → ENPENDDIS 07-23 12:04 → MEDS 07-23 16:12
PROVIDERS: Internal Medicine; Internal Medicine Critical Care Medicine; Internal Medicine Hematology & Oncology; Student in an Organized Health Care Education/Training Program; ADMIT Internal Medicine
PROC: 5A1935Z Respiratory Ventilation, Less than 24 Consecutive Hours (ICD-10-PCS; principal; 2022-07-15)
PROC: 0BH17EZ Insertion of Endotracheal Airway into Trachea, Via Natural or Artificial Opening (ICD-10-PCS; 2022-07-15)
PROC: 0D9670Z Drainage of Stomach with Drainage Device, Via Natural or Artificial Opening (ICD-10-PCS; 2022-07-15)
PROC: 30233N1 Transfusion of Nonautologous Red Blood Cells into Peripheral Vein, Percutaneous Approach (ICD-10-PCS; 2022-07-22)
DX: E11.649 Type 2 diabetes mellitus with hypoglycemia without coma (principal); G92.8 Other toxic encephalopathy; J96.90 Respiratory failure, unspecified, unspecified whether with hypoxia or hypercapnia; J69.0 Pneumonitis due to inhalation of food and vomit; N39.0 Urinary tract infection, site not specified; C79.51 Secondary malignant neoplasm of bone; C77.9 Secondary and unspecified malignant neoplasm of lymph node, unspecified; D53.9 Nutritional anemia, unspecified; D69.6 Thrombocytopenia, unspecified; T38.3X5A Adverse effect of insulin and oral hypoglycemic [antidiabetic] drugs, initial encounter; K58.9 Irritable bowel syndrome, unspecified; J30.9 Allergic rhinitis, unspecified; R59.1 Generalized enlarged lymph nodes; R56.9 Unspecified convulsions; I67.9 Cerebrovascular disease, unspecified; E79.0 Hyperuricemia without signs of inflammatory arthritis and tophaceous disease; E83.52 Hypercalcemia; E87.6 Hypokalemia; N18.4 Chronic kidney disease, stage 4 (severe); I12.9 Hypertensive chronic kidney disease with stage 1 through stage 4 chronic kidney disease, or unspecified chronic kidney disease; D63.1 Anemia in chronic kidney disease; E11.22 Type 2 diabetes mellitus with diabetic chronic kidney disease; F41.0 Panic disorder [episodic paroxysmal anxiety]; D63.0 Anemia in neoplastic disease; C80.1 Malignant (primary) neoplasm, unspecified; M54.9 Dorsalgia, unspecified; G89.29 Other chronic pain; G47.30 Sleep apnea, unspecified; I51.89 Other ill-defined heart diseases; Z20.822 Contact with and (suspected) exposure to COVID-19; B96.20 Unspecified Escherichia coli [E. coli] as the cause of diseases classified elsewhere; Z88.0 Allergy status to penicillin; Z90.710 Acquired absence of both cervix and uterus; Z91.81 History of falling; Z79.84 Long term (current) use of oral hypoglycemic drugs; Z79.82 Long term (current) use of aspirin; Z98.890 Other specified postprocedural states; Z79.899 Other long term (current) drug therapy; Z90.722 Acquired absence of ovaries, bilateral
CPT/HCPCS: 0202U; 31500; 36415; 36430; 51702; 70450; 70496; 71045; 71250; 74176; 74230; 76705; 80053; 80069; 81001; 81050; 82140; 82247; 82248; 82274; 82330; 82378; 82595; 82607; 82728; 82746; 82784; 82803; 82947; 83010; 83521; 83540; 83550; 83615; 83735; 84145; 84155; 84156; 84165; 84166; 84443; 84484; 84550; 85014; 85018; 85025; 85610; 85730; 86037; 86157; 86160; 86301; 86304; 86308; 86334; 86850; 86880; 86900; 86901; 86923; 87040; 87077; 87086; 87186; 92610; 92611; 93005; 93010; 93306; 94002; 94003; 94760; 96361; 96372; 96374; 96375; 97116; 97129; 97130; 97162; 97166; 97530; 99285-25; A9270; C9113; G0378; G0480; J0360; J0696; J1650; J1953; J2060; J2250; J2704; J2765; J2783; J3480; J7030; J7042; J7050; J7070; P9016; Q9967

== ENCOUNTER 2022-08-14 09:54 | Emergency (ER) | payer MEDICARE ==
[~2022-08-14] VITALS: Ht 165.1 cm; Wt 65.3 kg
[~2022-08-14 09:54] MED LIST changes: +AMLO5 PO; +DOCU100 PO; +GLIMEPIRIDE4 MG PO; +LEVE500 PO; +NIAC500 PO; +NITROGLYCERIN0.4 M3; +NITROGLYCERIN0.4 M3 SL; +ONDA4 PO; +POTASSIUM99 M3 PO; +UBID10 PO
[2022-08-14 10:28] LABS: Hematocrit 19.2 % (33.0-51.0); Hemoglobin 6.1 g/dL (11.5-16.0); Mean Corpuscular HGB 33.5 pg (26.0-34.0); Mean Corpuscular HGB Conc 31.8 g/dL (31.5-36.5); Mean Corpuscular Volume 106 fL (80-100); Mean Platelet Volume 10.1 fL (9.1-12.4); NRBC ABSOLUTE 0.14 K/mm3 (0.00-0.02); NRBC Auto 2.7 /100 WBC (0.0-0.2); Platelet Count 55 K/mm3 (150-400); RDW Coefficient Variation 14.6 % (11.7-14.2); RDW Standard Deviation 54.6 fL (35.1-46.3); Red Blood Cell Count 1.82 M/mm3 (3.80-5.20); White Blood Cell Count 5.13 K/mm3 (4.00-11.30)
[2022-08-14 10:42] LABS: Albumin, Blood 3.6 g/dL (3.4-5.0); Albumin/Globulin Ratio 1.2 (0.8-1.8); Bilirubin, Total 1.9 mg/dL (0.1-1.0); Bun/Creatinine Ratio 13.5 (12.0-20.0); Creatinine, Blood 2.6 mg/dL (0.40-1.00); Globulin, Blood 2.9 g/dL (2.2-4.0); Potassium, Blood 3.8 mmol/L (3.5-5.5); Total Protein, Blood 6.5 g/dL (6.4-8.2)
[2022-08-14 11:28] LABS: BAND PERCENT MAN 4 % (0-8); BASOPHILS PERCENT MAN 0 % (0-2); EOSINOPHILS PERCENT MAN 6 % (0-6); LYMPHOCYTES ABSOLUTE MAN 1.89 K/mm3 (0.84-5.20); LYMPHOCYTES PERCENT MAN 37 % (21-46); MONOCYTES ABSOLUTE MAN 1.02 K/mm3 (0.16-1.47); MONOCYTES PERCENT MAN 20 % (4-13); NEUTROPHILS ABSOLUTE MAN 1.89 K/mm3 (1.96-9.15); SEG NEUTROPHILS PERCENT MAN 33 % (41-73); TOTAL CELLS COUNTED 100
[2022-08-14 17:15] VITALS: BP 150/57
[2022-08-16] MEDS ORDERED: SIME80CH PO (13:12)
[2022-08-16] MEDS ORDERED: GLIM4 PO (15:50)
[2022-08-16] MEDS ORDERED: LOSA50 PO (15:50)
[2022-08-17] MEDS ORDERED: DULCOLAX400 MG/5 M PO (16:40)
[2022-08-17] MEDS ORDERED: Isosorbide Mono30 MG PO (16:41)
[2022-08-17] MEDS ORDERED: NITRO-DUR1 EAC1 TOP (16:43)
[2022-08-19] MEDS ORDERED: OXYC5 PO (16:45)
== END 2022-08-14 17:45 | disposition home or self-care (01) ==
LOC: ER 09:54
PROVIDERS: Physician Assistant
DX: D64.9 Anemia, unspecified (principal); R07.9 Chest pain, unspecified; I10 Essential (primary) hypertension; E11.9 Type 2 diabetes mellitus without complications; Z79.899 Other long term (current) drug therapy; Z79.84 Long term (current) use of oral hypoglycemic drugs; Z88.0 Allergy status to penicillin; Z88.5 Allergy status to narcotic agent; Z88.6 Allergy status to analgesic agent; Z88.8 Allergy status to other drugs, medicaments and biological substances
CPT/HCPCS: 36430; 71046; 80053; 83880; 84484; 85025; 86850; 86900; 86901; 86923; 93005; 93010; 96360; 99285-25; A9270; J7030; P9016

== ENCOUNTER 2022-08-20 19:01 | Inpatient (IN) | payer MEDICARE ==
[~2022-08-20] VITALS: Ht 165.1 cm; Wt 66.6 kg
[~2022-08-20 19:01] MED LIST changes: +DULCOLAX400 MG/5 M PO; +GLIM4 PO; +NITRO-DUR1 EAC1 TOP; +OXYC5 PO; +SIME80CH PO
[2022-08-20] MEDS ORDERED: ONDA4ODT MM (19:49)
[2022-08-20] MEDS ORDERED: ONETOUCH ULTRA1 EACH MC (19:49)
[2022-08-20 20:45] LABS: Hematocrit 19.4 % (33.0-51.0); Hemoglobin 6.5 g/dL (11.5-16.0); Mean Corpuscular HGB 31.4 pg (26.0-34.0); Mean Corpuscular HGB Conc 33.5 g/dL (31.5-36.5); Mean Corpuscular Volume 94 fL (80-100); Mean Platelet Volume 10.3 fL (9.1-12.4); NRBC Auto 3.6 /100 WBC (0.0-0.2); Platelet Count 51 K/mm3 (150-400); RDW Coefficient Variation 19.3 % (11.7-14.2); RDW Standard Deviation 64.7 fL (35.1-46.3); Red Blood Cell Count 2.07 M/mm3 (3.80-5.20); White Blood Cell Count 8.27 K/mm3 (4.00-11.30)
[2022-08-20 20:58] LABS: Albumin, Blood 3.5 g/dL (3.4-5.0); Albumin/Globulin Ratio 1.2 (0.8-1.8); Bilirubin, Total 5.2 mg/dL (0.1-1.0); Bun/Creatinine Ratio 14.8 (12.0-20.0); Creatinine, Blood 3.1 mg/dL (0.40-1.00); Magnesium, Blood 2.1 mg/dL (1.6-2.4); Potassium, Blood 4.4 mmol/L (3.5-5.5); Total Protein, Blood 6.5 g/dL (6.4-8.2)
[2022-08-20 21:00] LABS: International Normalized Ratio 1.22; Prothrombin Time Results 12.7 Sec (9.7-11.5)
[2022-08-20 22:04] LABS: BAND PERCENT MAN 5 % (0-8); BASOPHILS PERCENT MAN 0 % (0-2); EOSINOPHILS PERCENT MAN 0 % (0-6); LYMPHOCYTES % ATYPICAL MANUAL 2 % (0-0); LYMPHOCYTES ABSOLUTE MAN 2.97 K/mm3 (0.84-5.20); LYMPHOCYTES PERCENT MAN 34 % (21-46); METAMYELOCYTE ABSOLUTE MAN 0.16 K/mm3 (0.00-0.00); METAMYELOCYTE PERCENT MAN 2 % (0-0); MONOCYTES ABSOLUTE MAN 2.15 K/mm3 (0.16-1.47); MONOCYTES PERCENT MAN 26 % (4-13); NEUTROPHILS ABSOLUTE MAN 2.97 K/mm3 (1.96-9.15); SEG NEUTROPHILS PERCENT MAN 31 % (41-73); TOTAL CELLS COUNTED 100
[2022-08-20 23:21] LABS: Phosphorus, Blood 2.6 mg/dL (2.5-4.9)
[2022-08-21] VITALS (14 sets, daily range): BP systolic 131–176; BP diastolic 50–73
[2022-08-21 05:06] LABS: Hematocrit 22.7 % (33.0-51.0); Hemoglobin 7.7 g/dL (11.5-16.0); Mean Corpuscular HGB 30.8 pg (26.0-34.0); Mean Corpuscular HGB Conc 33.9 g/dL (31.5-36.5); Mean Corpuscular Volume 91 fL (80-100); Mean Platelet Volume 9.9 fL (9.1-12.4); NRBC ABSOLUTE 0.39 K/mm3 (0.00-0.02); NRBC Auto 6.3 /100 WBC (0.0-0.2); RDW Coefficient Variation 18.5 % (11.7-14.2); RDW Standard Deviation 59.6 fL (35.1-46.3); White Blood Cell Count 6.22 K/mm3 (4.00-11.30)
[2022-08-21 05:35] LABS: Platelet Count 48 K/mm3 (150-400)
[2022-08-21 06:01] LABS: Albumin, Blood 3.2 g/dL (3.4-5.0); Albumin/Globulin Ratio 1.2 (0.8-1.8); Bilirubin, Direct 3.6 mg/dL (0.0-0.3); Bilirubin, Indirect 1.9 mg/dL (0.1-0.7); Bilirubin, Total 5.5 mg/dL (0.1-1.0); Bun/Creatinine Ratio 13.5 (12.0-20.0); Calcium, Blood 7.8 mg/dL (8.5-10.1); Creatinine, Blood 3.42 mg/dL (0.40-1.00); Globulin, Blood 2.7 g/dL (2.2-4.0); Magnesium, Blood 2.1 mg/dL (1.6-2.4); Phosphorus, Blood 3.1 mg/dL (2.5-4.9); Potassium, Blood 4.5 mmol/L (3.5-5.5); Total Protein, Blood 5.9 g/dL (6.4-8.2); Uric Acid, Blood 8.8 mg/dL (2.6-6.0)
--- NOTE | 2022-08-21 06:25 | NUR ---
SHIFT SUMMARY PT IS A&O4, UP SB TO THE BR WITH WEAKNESS, RA, CONSULT FOR ONCOLOGY PLACED THIS AM, PRN PAIN MEDICATION GIVEN PER MAY, 1 UNIT PRBCS GIVEN THIS SHIFT, HGB 7.7 THIS AM, ZOFRAN GIVEN X1 FOR NAUSEA, CONTINUE POC
[2022-08-21 06:26] LABS: BAND PERCENT MAN 3 % (0-8); BASOPHILS PERCENT MAN 0 % (0-2); EOSINOPHILS ABSOLUTE MAN 0.18 K/mm3 (0.00-0.68); EOSINOPHILS PERCENT MAN 3 % (0-6); LYMPHOCYTES ABSOLUTE MAN 2.42 K/mm3 (0.84-5.20); LYMPHOCYTES PERCENT MAN 39 % (21-46); METAMYELOCYTE ABSOLUTE MAN 0.06 K/mm3 (0.00-0.00); METAMYELOCYTE PERCENT MAN 1 % (0-0); MONOCYTES PERCENT MAN 13 % (4-13); NEUTROPHILS ABSOLUTE MAN 2.73 K/mm3 (1.96-9.15); SEG NEUTROPHILS PERCENT MAN 41 % (41-73); TOTAL CELLS COUNTED 100
[2022-08-21 11:30] LABS: Hematocrit 21.4 % (33.0-51.0); Hemoglobin 7.4 g/dL (11.5-16.0); Mean Corpuscular HGB 31.8 pg (26.0-34.0); Mean Corpuscular HGB Conc 34.6 g/dL (31.5-36.5); Mean Corpuscular Volume 92 fL (80-100); Mean Platelet Volume 10.1 fL (9.1-12.4); NRBC ABSOLUTE 0.36 K/mm3 (0.00-0.02); Platelet Count 51 K/mm3 (150-400); RDW Coefficient Variation 19.1 % (11.7-14.2); RDW Standard Deviation 61.4 fL (35.1-46.3); Red Blood Cell Count 2.33 M/mm3 (3.80-5.20); White Blood Cell Count 9.05 K/mm3 (4.00-11.30)
[2022-08-21 13:29] LABS: BASOPHILS PERCENT MAN 0 % (0-2); EOSINOPHILS ABSOLUTE MAN 0.27 K/mm3 (0.00-0.68); EOSINOPHILS PERCENT MAN 3 % (0-6); LYMPHOCYTES % ATYPICAL MANUAL 2 % (0-0); LYMPHOCYTES ABSOLUTE MAN 2.89 K/mm3 (0.84-5.20); LYMPHOCYTES PERCENT MAN 30 % (21-46); MONOCYTES ABSOLUTE MAN 2.44 K/mm3 (0.16-1.47); MONOCYTES PERCENT MAN 27 % (4-13); NEUTROPHILS ABSOLUTE MAN 3.43 K/mm3 (1.96-9.15); SEG NEUTROPHILS PERCENT MAN 38 % (41-73); TOTAL CELLS COUNTED 100
--- NOTE | 2022-08-21 16:58 | NUR ---
TRANSFER/SHIFT NOTE PT TRANSFERING TO PCU, GAVE REPORT TO NURSE RECIEVING PT. PT A&O X4, COOPERATIVE WITH CARE BUT DOES BECOME ANXIOUS REGARDING HEALTH STATUS. PT WENT FOR A CT SCAN THIS AM. CONSULTED DR ABREU REGARDING REFERRAL FOR INTERVENTIONAL RADIOLOGY CONSULT FOR POSSIBLE INTRA-ABDOMINAL HEMMORAGE. PT HAD SOME NAUSEA T/O SHIFT, MEDICATED PER MAY. PT HAD BIOPSY SCHEDULED TODAY BUT BECAME ANXIUOS AND WAS NOT ABLE TO GO THROUGH WITH THE PROCEDURE. DR HILL NOTIFIED AND WILL ORDER ANXIETY MEDICATION. ANXIETY MEDS AND PAIN MEDS TO BE GIVEN BEFORE BIOPSY. PASSED OFF INFORMATION IN REPORT. ONE UNIT OF PLATELETS ADMINISTERED. PT BEING TRANSFERED TO PCU 2, REPORT GIVEN TO UNIQUE. DAUGHTER AT BEDSIDE MOST OF THE DAY.
--- NOTE | 2022-08-21 18:18 | NUR ---
CARE ASSUMPTION/SHIFT SUMMARY PT A&OX4, ANSWERS QUESTIONS APPROPRIATELY. SP02>90% ON RA. TELEMETRY SHOWS SINUS TACH, HR 110'S. HTN NOTED, SBP 150'S-160'S. PT HAS R GRION SITE. SITE SOFT, NO BRUISING, NO BLEEDING NOTED. PT LAYING FLAT PER RECOVERY ORDERS. CURRENTLY SLEEPING. DAUGHTER IN ROOM. CALL LIGHT IN REACH.
[2022-08-21 18:55] LABS: Hematocrit 19.3 % (33.0-51.0); Hemoglobin 6.6 g/dL (11.5-16.0); Mean Corpuscular HGB 31.6 pg (26.0-34.0); Mean Corpuscular HGB Conc 34.2 g/dL (31.5-36.5); Mean Corpuscular Volume 92 fL (80-100); Mean Platelet Volume 10.2 fL (9.1-12.4); NRBC ABSOLUTE 0.42 K/mm3 (0.00-0.02); NRBC Auto 5.3 /100 WBC (0.0-0.2); Platelet Count 76 K/mm3 (150-400); RDW Coefficient Variation 18.9 % (11.7-14.2); RDW Standard Deviation 62.6 fL (35.1-46.3); Red Blood Cell Count 2.09 M/mm3 (3.80-5.20); White Blood Cell Count 7.91 K/mm3 (4.00-11.30)
[2022-08-21 19:37] LABS: BAND PERCENT MAN 6 % (0-8); BASOPHILS PERCENT MAN 0 % (0-2); EOSINOPHILS ABSOLUTE MAN 0.23 K/mm3 (0.00-0.68); EOSINOPHILS PERCENT MAN 3 % (0-6); LYMPHOCYTES % ATYPICAL MANUAL 1 % (0-0); LYMPHOCYTES ABSOLUTE MAN 2.37 K/mm3 (0.84-5.20); LYMPHOCYTES PERCENT MAN 29 % (21-46); METAMYELOCYTE ABSOLUTE MAN 0.23 K/mm3 (0.00-0.00); METAMYELOCYTE PERCENT MAN 3 % (0-0); MONOCYTES ABSOLUTE MAN 1.97 K/mm3 (0.16-1.47); MONOCYTES PERCENT MAN 25 % (4-13); NEUTROPHILS ABSOLUTE MAN 3.08 K/mm3 (1.96-9.15); SEG NEUTROPHILS PERCENT MAN 33 % (41-73); TOTAL CELLS COUNTED 100
[2022-08-22] VITALS (10 sets, daily range): BP systolic 121–153; BP diastolic 45–63
[2022-08-22 02:42] LABS: Hematocrit 21.7 % (33.0-51.0); Hemoglobin 7.5 g/dL (11.5-16.0); Mean Corpuscular HGB 31.3 pg (26.0-34.0); Mean Corpuscular HGB Conc 34.6 g/dL (31.5-36.5); Mean Corpuscular Volume 90 fL (80-100); Mean Platelet Volume 9.9 fL (9.1-12.4); NRBC ABSOLUTE 0.46 K/mm3 (0.00-0.02); NRBC Auto 5.4 /100 WBC (0.0-0.2); Platelet Count 67 K/mm3 (150-400); RDW Coefficient Variation 17.7 % (11.7-14.2); RDW Standard Deviation 57.4 fL (35.1-46.3); White Blood Cell Count 8.58 K/mm3 (4.00-11.30)
[2022-08-22 02:51] LABS: Albumin, Blood 3.2 g/dL (3.4-5.0); Albumin/Globulin Ratio 1.3 (0.8-1.8); Bilirubin, Total 4.9 mg/dL (0.1-1.0); Calcium, Blood 7.8 mg/dL (8.5-10.1); Creatinine, Blood 3.65 mg/dL (0.40-1.00); Globulin, Blood 2.5 g/dL (2.2-4.0); Magnesium, Blood 2.3 mg/dL (1.6-2.4); Phosphorus, Blood 3.9 mg/dL (2.5-4.9); Potassium, Blood 4.7 mmol/L (3.5-5.5); Total Protein, Blood 5.7 g/dL (6.4-8.2)
[2022-08-22 03:52] LABS: BAND PERCENT MAN 4 % (0-8); BASOPHILS ABSOLUTE MAN 0.08 K/mm3 (0.00-0.23); BASOPHILS PERCENT MAN 1 % (0-2); EOSINOPHILS ABSOLUTE MAN 0.25 K/mm3 (0.00-0.68); EOSINOPHILS PERCENT MAN 3 % (0-6); LYMPHOCYTES ABSOLUTE MAN 2.57 K/mm3 (0.84-5.20); LYMPHOCYTES PERCENT MAN 30 % (21-46); METAMYELOCYTE ABSOLUTE MAN 0.17 K/mm3 (0.00-0.00); METAMYELOCYTE PERCENT MAN 2 % (0-0); MONOCYTES PERCENT MAN 28 % (4-13); MYELOCYTE ABSOLUTE MAN 0.08 K/mm3 (0.00-0.00); MYELOCYTE PERCENT MAN 1 % (0-0); SEG NEUTROPHILS PERCENT MAN 31 % (41-73); TOTAL CELLS COUNTED 100
--- NOTE | 2022-08-22 05:48 | NUR ---
SHIFT SUMMARY PT IS A/Ox4 AND COOPERATIVE WITH CARE PROVIDE BY MEMBERS OF STAFF. ANSWERS QUESTIONS APPROPRIATELY AND ABLE TO MAKE HER NEEDS KNOWN. ANXIOUS AT TIMES, BUT REPSONDS WELL TO THERAPEUTIC COMMINICATION. CARDIAC LAW, REMAINS IN SR-ST 80-100'S, SBP A BIT HYPERTENSIVE RANGING 130-150'S. INTERMITTENT EPISODE OF CP THAT RESOLVED QUICKLY. NO OTHER REPORTS OF CP T/O THE SHIFT. RESPIRATORY LAW, MAINTAINS SPO2 >95% ON RA WITH NO C/O SOB OR DYSPNEA. ABLE TO ABULATE WITH 1-SBA AND FWW. PT ALSO REPORTED INTERMITTENT EPISODE OF R SIDED FLANK PAIN THAT ALSO RESOLVED SHORTLY AFTER. NO SIGNS OF HEMATOMA OR BLEEDING NOTE AT SITE OF PAIN. PAIN HAS BEEN MANAGED ORDERED VIA EMAR. RIGHT GROIN ACCESS SITE WNL, NO HEMATOMA, BLEEDING, OR TENDERNESS REPORTED. PT ASLO RECEIVED 1 UNIT OF PRBC'S DUE TO Hgb BEING 6.6 AT START OF SHIFT. Hgb HAS RISEN TO 7.5 AFTER TRANSFUSION COMPLETE. NO ADVERSE REACTIONS OR SYMPTOMS NOTE DURING TRANSFUSION. NO NEW ORDERS AT THIS TIME, WILL REPORT TO ONCOMING RN. ARIANA GODWIN OF THIS NOTE.
[2022-08-22 08:57] LABS: Hemoglobin 7.4 g/dL (11.5-16.0); Mean Corpuscular HGB 31.5 pg (26.0-34.0); Mean Corpuscular HGB Conc 35.2 g/dL (31.5-36.5); Mean Corpuscular Volume 89 fL (80-100); Mean Platelet Volume 10.2 fL (9.1-12.4); NRBC ABSOLUTE 0.43 K/mm3 (0.00-0.02); NRBC Auto 5.3 /100 WBC (0.0-0.2); Platelet Count 61 K/mm3 (150-400); RDW Coefficient Variation 18.2 % (11.7-14.2); Red Blood Cell Count 2.35 M/mm3 (3.80-5.20); White Blood Cell Count 8.11 K/mm3 (4.00-11.30)
[2022-08-22 11:45] LABS: BAND PERCENT MAN 2 % (0-8); BASOPHILS PERCENT MAN 0 % (0-2); EOSINOPHILS ABSOLUTE MAN 0.32 K/mm3 (0.00-0.68); EOSINOPHILS PERCENT MAN 4 % (0-6); LYMPHOCYTES ABSOLUTE MAN 2.51 K/mm3 (0.84-5.20); LYMPHOCYTES PERCENT MAN 31 % (21-46); MONOCYTES ABSOLUTE MAN 1.54 K/mm3 (0.16-1.47); MONOCYTES PERCENT MAN 19 % (4-13); NEUTROPHILS ABSOLUTE MAN 3.73 K/mm3 (1.96-9.15); SEG NEUTROPHILS PERCENT MAN 44 % (41-73); TOTAL CELLS COUNTED 100
--- NOTE | 2022-08-22 15:04 | NUR ---
RN/ DAY SHIFT SUMMARY MORNING SHIFT REPORT RECIEVED DURING BEDSIDE PATIENT GREETING. THE PATIENT WAS THEN ASSESSED WITH XimoXi PASS COMPLETED WITH NO COMPLICATIONS. THE MENTIONS THAT SHE HAS BEEN BLOATED AND PASSING GAS REGULARLY WITH NO BM. THE PATIENT DENIES ANY PAIN AT THIS TIME OTHER THAN THE BACK PAIN THAT HAS BEEN TREATED WITH TYLENOL. THE PATIENT HAS GONE FOR CT WITH LUMBAR PUNCTURE AND HAS RETURNED POST PROCEDURE AND IS PLEASANT WITH DAUGHTER AT THE BEDSIDE. CONTINUE TO MONITOR.
[2022-08-22 16:12] LABS: Hematocrit 19.7 % (33.0-51.0); Hemoglobin 6.6 g/dL (11.5-16.0)
[2022-08-22 22:33] LABS: Hematocrit 20.7 % (33.0-51.0); Hemoglobin 7.1 g/dL (11.5-16.0)
[2022-08-23] VITALS (9 sets, daily range): BP systolic 119–152; BP diastolic 48–84
[2022-08-23 04:39] LABS: Hematocrit 19.5 % (33.0-51.0); Hemoglobin 6.6 g/dL (11.5-16.0); Mean Corpuscular HGB 30.7 pg (26.0-34.0); Mean Corpuscular HGB Conc 33.8 g/dL (31.5-36.5); Mean Corpuscular Volume 91 fL (80-100); Mean Platelet Volume 9.8 fL (9.1-12.4); NRBC ABSOLUTE 0.44 K/mm3 (0.00-0.02); NRBC Auto 6.6 /100 WBC (0.0-0.2); RDW Coefficient Variation 18.3 % (11.7-14.2); RDW Standard Deviation 58.1 fL (35.1-46.3); Red Blood Cell Count 2.15 M/mm3 (3.80-5.20); White Blood Cell Count 6.64 K/mm3 (4.00-11.30)
[2022-08-23 05:13] LABS: Albumin/Globulin Ratio 1.2 (0.8-1.8); Bilirubin, Total 4.9 mg/dL (0.1-1.0); Bun/Creatinine Ratio 13.8 (12.0-20.0); Creatinine, Blood 3.99 mg/dL (0.40-1.00); Globulin, Blood 2.6 g/dL (2.2-4.0); Potassium, Blood 4.6 mmol/L (3.5-5.5); Total Protein, Blood 5.6 g/dL (6.4-8.2)
[2022-08-23 05:29] LABS: Platelet Count 47 K/mm3 (150-400)
--- NOTE | 2022-08-23 05:57 | NUR ---
SHIFT SUMMARY ASSUMED CARE OF PT AT 1900. PT IS A/OX4. HEART SOUNDS REGULAR. LUNG SOUNDS HAVE FINE CRACKLES AT THE BASES. PT USED BSC WITH 1P SBA DURING THE NOC. PT HAS BRUSING T/O. PT SKIN IS VERY JAUNDICED. PT FEELING MALAISE. PT DID NOT SLEEP WELL DUE TO BACK PAIN. LUMBAR SITE HAS SLIGHT SWELLING BUT NO BRUSING OR REDNESS. PT HBG LOW AGAIN THIS AM. HOSPITALIST NOTIFED AND SAID TO GIVE 1 UNIT PRBC.
[2022-08-23 06:17] LABS: BAND PERCENT MAN 1 % (0-8); BASOPHILS PERCENT MAN 0 % (0-2); EOSINOPHILS ABSOLUTE MAN 0.46 K/mm3 (0.00-0.68); EOSINOPHILS PERCENT MAN 7 % (0-6); LYMPHOCYTES % ATYPICAL MANUAL 1 % (0-0); LYMPHOCYTES ABSOLUTE MAN 1.92 K/mm3 (0.84-5.20); LYMPHOCYTES PERCENT MAN 28 % (21-46); METAMYELOCYTE ABSOLUTE MAN 0.06 K/mm3 (0.00-0.00); METAMYELOCYTE PERCENT MAN 1 % (0-0); MONOCYTES ABSOLUTE MAN 1.92 K/mm3 (0.16-1.47); MONOCYTES PERCENT MAN 29 % (4-13); NEUTROPHILS ABSOLUTE MAN 2.25 K/mm3 (1.96-9.15); SEG NEUTROPHILS PERCENT MAN 33 % (41-73); TOTAL CELLS COUNTED 100
[2022-08-23 12:28] LABS: Hematocrit 22.9 % (33.0-51.0); Hemoglobin 7.9 g/dL (11.5-16.0)
[2022-08-23 14:45] LABS: Bun/Creatinine Ratio 13.7 (12.0-20.0); Calcium, Blood 8.1 mg/dL (8.5-10.1); Creatinine, Blood 4.17 mg/dL (0.40-1.00); Potassium, Blood 4.7 mmol/L (3.5-5.5); Uric Acid, Blood 5.9 mg/dL (2.6-6.0)
--- NOTE | 2022-08-23 15:39 | NUR ---
RN/ DAY SHIFT SUMMARY MORNING REPORT RECEIVED AT BEDSIDE WITH PATIENT AND FAMILY DURING GREETING. ASSESSMENT AND MEDICATION PASSED WITH NO COMPLICATIONS. THE PATIENT WAS CURRENTLY RECEIVING BLOOD PRODUCT REACHING THE END OF INFUSION WITH SLIGHT ITCHING NOTED ON THE FEET AND LEGS POST INFUSION. THE PATIENT IS DOING WELL AND IS PLEASANT AND WELL CARED FOR. WILL CONTINUE TO MONITOR.
[2022-08-23 16:52] LABS: Hemoglobin 7.2 g/dL (11.5-16.0)
[2022-08-23 17:18] LABS: Albumin, Blood 3.1 g/dL (3.4-5.0); Anion Gap 9 mmol/L (6-16); Blood Urea Nitrogen 59 mg/dL (8-24); Bun/Creatinine Ratio 13.9 (12.0-20.0); CO2, Blood 18 mmol/L (21-32); Calcium, Blood 8.1 mg/dL (8.5-10.1); Chloride, Blood 108 mmol/L (98-108); Creatinine, Blood 4.24 mg/dL (0.40-1.00); Glomerular Filtration Rate 11 (60-); Glucose, Blood 167 mg/dL (70-99); Potassium, Blood 4.7 mmol/L (3.5-5.5); Sodium, Blood 135 mmol/L (136-145)
[2022-08-23 18:02] LABS: Source, Urine Foley catheter
--- NOTE | 2022-08-23 18:05 | NUR ---
Met with pt at bedside today. She appears jaundiced, and states she's feeling very tired lately. She has continued receiving PRBC's and continues to have low H & H. Unsure if pt is grasping the severity of her prognosis, but plan to meet with pt and Dr. Concepcion tomorrow, hopeful daughter Erum will be present. Placed call to Erum who states she has tomorrow off.
[2022-08-23 18:16] LABS: Bilirubin, Urine Neg (Neg); Blood, Urine 4+ (Neg); Color, Urine Yellow (P-Yellow); Glucose Qualitative, Urine Neg (Neg); Ketones, Urine Neg (Neg); Leukocyte Esterase, Urine Neg (Neg); Nitrite, Urine Neg (Neg); Protein, Urine 3+ (Neg); Specific Gravity, Urine 1.015 (1.003-1.022); Urobilinogen, Urine 2+ (Normal)
[2022-08-23 18:42] LABS: PCO2 Arterial 32.8 mmHg (35-45); PO2 Arterial 72.2 mmHg (80-100); pH Blood Arterial 7.34 (7.35-7.45)
[2022-08-23 18:58] LABS: Appearance, Urine Hazy (Clear)
[2022-08-23 19:00] LABS: Amorphous Mod (0-Heavy); Bacteria Many /hpf; Mucus Light (0-Heavy); Red Blood Cells, Urine 0-2 /hpf (0-2); Squamous Epithelial Cells Rare /hpf (Few); White Blood Cells, Urine 0-2 /hpf (0-5)
[2022-08-23 20:35] LABS: Hematocrit 21.8 % (33.0-51.0); Hemoglobin 7.2 g/dL (11.5-16.0)
[2022-08-24] VITALS (8 sets, daily range): BP systolic 119–154; BP diastolic 51–98
[2022-08-24 04:02] LABS: Hematocrit 19.9 % (33.0-51.0); Hemoglobin 6.7 g/dL (11.5-16.0)
[2022-08-24 04:25] LABS: Albumin, Blood 3.2 g/dL (3.4-5.0); Anion Gap 11 mmol/L (6-16); Blood Urea Nitrogen 58 mg/dL (8-24); Bun/Creatinine Ratio 13.6 (12.0-20.0); CO2, Blood 18 mmol/L (21-32); Calcium, Blood 8.1 mg/dL (8.5-10.1); Chloride, Blood 106 mmol/L (98-108); Creatinine, Blood 4.27 mg/dL (0.40-1.00); Glomerular Filtration Rate 11 (60-); Glucose, Blood 186 mg/dL (70-99); Magnesium, Blood 2.2 mg/dL (1.6-2.4); Phosphorus, Blood 4.1 mg/dL (2.5-4.9); Potassium, Blood 4.5 mmol/L (3.5-5.5); Sodium, Blood 135 mmol/L (136-145)
--- NOTE | 2022-08-24 06:21 | NUR ---
SHIFT SUMMARY ASSUMED CARE OF PT AT 1900. PT IS A/OX4. PT IS MORE LEHTARGIC TODAY, STILL COMPLAINING OF DISCOMFORT AND UNABLE TO SLEEP MORE THAN AN HOUR. DAUGHTER STAYED IN ROOM WITH PT TO HELP WITH CARE. PT WORRIED ABOUT SWELLING OF EXTREMITIES. DAUGHTER CONCERNED SHE IS NOT INFORMED SHE WOULD LIKE TO BE.
--- NOTE | 2022-08-24 09:52 | NUR ---
Spiritual care visit conducted. Patient is sitting on a chair and alert. Patient's dtr, Erum, and sister, Kassandra are bedside. Patient and family admit to having fears and worries about patient's condition. Erum is tearful and yet is very postive when near the pt. They talk of the Mandaen lucas, their solid family and friend support and their appreciation for the medical staff. The is busy with many disciplines coming in and out but we get a quiet moment and say a prayer together, The patient and family are moved by the prayer and hug me stating that it was very encouraging. I provided therapeutic listening and anxiety containment. Spiritual care will remain available.
--- NOTE | 2022-08-24 13:07 | NUR ---
DR. CLARK BY THIS AM. DISCUSSION WITH PATIENT AND DAUGHTER. PLAN FOR DNR CODE STATUS. UPDATED IN COMPUTER AND DNR BAND PLACED ON RIGHT WRIST. OTHER ORDERS FOR THIS RN TO PLACE INCLUDED TO DISCONTINUE ECHO AND ABDOMINAL CT. ECHO AND IMAGING UPDATED. PLAN TO CHECK H&H TWO HOURS POST PRBC INFUSION PER DR. HILL.
[2022-08-24 13:24] LABS: Hematocrit 20.8 % (33.0-51.0); Hemoglobin 7.3 g/dL (11.5-16.0)
--- NOTE | 2022-08-24 14:33 | NUR ---
RN/ DAY SHIFT SUMMARY MORNING SHIFT REPORT GIVEN AT BEDSIDE DURING GREETING WITH PATIENT. THE PATIENT HAD BLOOD TRANSFUSION DURING THE INITIAL ASSESSMENT AND MEDICATION PASS. BUMEX WAS GIVEN DURING THE BLOOD TRANSFUSION. THE PATIENT STATES THAT SHE IS WEAK AND HAS DIFFICULTIES WITH WALKING LONG DISTANCES WHICH HELP WITH MOTILITY. THE PATIENT HAS BEEN UNCOMFORTABLE AND VERBAL ABOUT HER DISCOMFORT. THE PROVIDER WAS NOTIFIED AND BM WILL BE ENCOURAGED THROUGH MORE AGRESSIVE MEANS. THE PATIENT IS PLEASANT AND RESTING. WILL CONTINUE TO MONITOR.
--- NOTE | 2022-08-24 16:16 | NUR ---
Dr. Concepcion spoke with pt this afternoon, explained that preliminary biopsy came back, and Dr. Stoll states nothing more can be done. Pt and daughter together for the conversation, and pt agreeable to comfort care. Plan to stay in hospital for the weekend, and will re-assess saturday. Pt has begun a rapid decline. Will continue to meet with pt and daughter as needed. Pt's daughter Erum is tearful, and has been at most meetings. She would benefit from continued support of spiritual care and palliative care during hospital stay.
--- NOTE | 2022-08-24 16:22 | NUR ---
DR. CLARK AND SANDRA FROM PALLIATIVE CARE TO BEDSIDE TO DISCUSS CARE WITH PATIENT AND DAUGHTER. DECISION TO TRANSITION TO COMFORT CARE AT THIS TIME. PALLIATIVE CARE TO UPDATE DR. CAMPOS.
--- NOTE | 2022-08-24 20:17 | NUR ---
ASSUMED PT CARE FORM NAIN LE ON . PT A&OX4. ABLE TO FOLLOW DIRECTIONS AND MAKE NEEDS KNOWN. REPORTS THAT PAIN IS TOLERABLE AT THIS TIME, PAIN MEDICATIONS GIVEN JUST PREVIOUS TO SHIFT CHANGE. WILL MONITOR. DAUGHTER ATTENTIVE AT BEDSIDE, PT REPORTS SHE IS VERY AWARE OF HER PREFERENCES AND DECLINES NEEDING ANYTHING FROM ME. CALL LIGHT IN REACH.
--- NOTE | 2022-08-25 05:52 | NUR ---
SHIFT SUMMARY: PT HAS HAD NO SIGNIFICANT CHANGES THROUGHOUT THE NIGHT. PAIN CONTROLED WITH BOTH IV AND PO PAIN MEDS, SEE EMAR. DAUGHTER ATTENTIVE AT BEDSIDE. NAUSEA HAS REMAINED TOLERABLE THROUGHOUT NIGHT.
--- NOTE | 2022-08-25 13:28 | NUR ---
PATIENT IS ALERT AND ORIENTED. ABLE TO TRANSFER WITH SBA. ON COMFORT CARE AND FAMILY PRESENT AT BEDSIDE. PATIENT ABLE TO COMMUNICATE NEEDS CLEARLY. INTERMIT BACK/CHEST PAIN THIS MORNING AND AFTERNOON. MEDICATED PER EMAR WITH GOOD RELIEF. PATIENT ALSO GIVEN STOOL SOFTNERS AND SUPPOSITORY THIS AM TO TRY AND HELP ASSIST WITH BM. REPOSITIONING NEEDED. PATIENT NOT INTERSETED IN EATING. NAUSEA THIS AM RELIEVED WITH PHENERGAN. DRINKING FLUIDS. LINDSAY CATH REMAINS IN PLACE. CATH CARE COMPLETED. VERY MINIMAL AMOUNT OF MARYANA COLORED URINE. CALL LIGHT IN REACH.
--- NOTE | 2022-08-25 18:08 | NUR ---
PATIENT MEDICATED FOR PAIN AND NAUSEA THROUGHOUT SHIFT. FAMILY REMAINS AT BEDSIDE HELPING WITH CARES. PATIENT STARTING TO HAVE SHALLOWER BREATHS AND RR DECREASING. BED BATH GIVEN. UP TO BSC A COUPLE TIMES TODAY TO ATTEMPT BOWEL MOVEMENTS. CATH CARE COMPELTED X2 TODAY. REPOSITIONING NEEDED AND PATIENT WANTS FOR COMFORT.
--- NOTE | 2022-08-25 19:56 | NUR ---
ASSUMED PT CARE FORM NAIN LE ON . PT RESTING IN BED WITH EYE CLOSED. REPIRATIONS EVEN BUT LABORED, NO INDICATION OF INCREASED SECRETIONS AT THIS TIME, WILL MONITOR. PT MOANING FREQUENTLY IN HER SLEEPING, BUT NO GRIMACING PRESENT ON FACE AT THIS TIME. APPEARS TO BE SLEEPING. FAMILY ATTENTIVE AT BEDSIDE. DENIES NEEDS AT THIS TIME.
--- NOTE | 2022-08-25 21:01 | NUR ---
PT RESPIRATIONS HAVE BECOME MOIST AND GUGGLING IS PRESENT. PT IS ALSO ATTEMPTING TO GET OUT OF BED. MEDICATION GIVEN TO HELP DRY SECTIONS AND HELP REST MORE COMFORTABLY. FAMILY AT BEDSIDE.
--- NOTE | 2022-08-26 05:47 | NUR ---
SHIFT SUMMARY: PT HAS HAD INCREASING PAIN THROUGHOUT THE NIGHT. PT LYING IN BED ON HER BACK WITH HER EYES CLOSED BUT CONSTANTLY MOANING AND GROANING. PT GAVE EVERYTHING AVAILABLE FOR COMFORT WITHOUT ANY IMPROVEMENT. DR. MARIA CALLED AND REQUESTED ADDITIONAL MEDICATIONS FOR PT'S COMFORT. LIQUID OXYCODONE GIVEN WITHOUT IMPROVEMENT, SEE EMAR. IV DILAUDED GIVEN, SEE EMAR. APPEARS TO BE IMPROVED, SILL MOANING BUT LESS REQUENTLY AND SOFTLY. WILL CONTINUE TO MONITOR. DAUGHTER ATTENTIVE AT BEDSIDE ALL NIGHT, TEARFUL AND CONCERNED ABOUT PT'S COMFORT. CONSULATION GIVEN. DAUGHTER APPEARS TO BE SLEEPING NOW.
--- NOTE | 2022-08-26 08:26 | NUR ---
PATIENT RESTING PEACFULLY AT THIS TIME. DAUGHTER PRESENT AT BEDSIDE. WET RATTLE HEARD WHEN BREATHING. DENIES PAIN MEDS AT THIS TIME. REPOSITIONING NEEDED.
--- NOTE | 2022-08-26 12:04 | NUR ---
PATIENT TIME OF 1112. [address] CLARK/DR. HILL NOTIFIED. FAMILY REMAINS AT BEDSIDE SAYING GOODBYES. ETIQUETTE COACH UNIQUE HUGO TO CALL NURSING SUPERVISIOR AND COMPLETE FINAL DISCHARGE PAPERWORK WELL CONTACTING DONOR LINE. FAMILY VERY THANKFUL FOR CARE. [facility] CHOSEN BY FAMILY.
[2022-08-27 13:01] LABS: Performing Lab SYMBIODX; Test Name TISSUE BIOPSY
== END 2022-08-26 13:30 | DRG 478 ==
LOC: ER 19:01 → MEDS 19:02 → PCU 08-21 14:39 → MEDS 08-21 14:39 → PCU 08-21 17:00
PROVIDERS: Family Medicine; Hospitalist; Internal Medicine Nephrology; Pathology Clinical Pathology/Laboratory Medicine; Student in an Organized Health Care Education/Training Program; ADMIT Student in an Organized Health Care Education/Training Program
PROC: 30233N1 Transfusion of Nonautologous Red Blood Cells into Peripheral Vein, Percutaneous Approach (ICD-10-PCS; 2022-08-22)
PROC: 30233R1 Transfusion of Nonautologous Platelets into Peripheral Vein, Percutaneous Approach (ICD-10-PCS; 2022-08-22)
PROC: 0QB03ZX Excision of Lumbar Vertebra, Percutaneous Approach, Diagnostic (ICD-10-PCS; principal; 2022-08-23)
PROC: 30233N1 Transfusion of Nonautologous Red Blood Cells into Peripheral Vein, Percutaneous Approach (ICD-10-PCS; 2022-08-23)
PROC: 4A033R1 Measurement of Arterial Saturation, Peripheral, Percutaneous Approach (ICD-10-PCS; 2022-08-23)
PROC: 0T9B70Z Drainage of Bladder with Drainage Device, Via Natural or Artificial Opening (ICD-10-PCS; 2022-08-23)
PROC: B410ZZZ Fluoroscopy of Abdominal Aorta (ICD-10-PCS; 2022-08-23)
PROC: B41JZZZ Fluoroscopy of Other Lower Arteries (ICD-10-PCS; 2022-08-23)
PROC: B414ZZZ Fluoroscopy of Superior Mesenteric Artery (ICD-10-PCS; 2022-08-23)
PROC: B415ZZZ Fluoroscopy of Inferior Mesenteric Artery (ICD-10-PCS; 2022-08-23)
PROC: 009U3ZX Drainage of Spinal Canal, Percutaneous Approach, Diagnostic (ICD-10-PCS; 2022-08-24)
DX: C79.51 Secondary malignant neoplasm of bone (principal); C85.90 Non-Hodgkin lymphoma, unspecified, unspecified site; E87.1 Hypo-osmolality and hyponatremia; E87.20 Acidosis, unspecified; N17.9 Acute kidney failure, unspecified; I12.9 Hypertensive chronic kidney disease with stage 1 through stage 4 chronic kidney disease, or unspecified chronic kidney disease; Z66 Do not resuscitate; Z51.5 Encounter for palliative care; G89.29 Other chronic pain; M54.9 Dorsalgia, unspecified; E80.6 Other disorders of bilirubin metabolism; D63.0 Anemia in neoplastic disease; E79.0 Hyperuricemia without signs of inflammatory arthritis and tophaceous disease; N18.9 Chronic kidney disease, unspecified; E11.22 Type 2 diabetes mellitus with diabetic chronic kidney disease; K21.9 Gastro-esophageal reflux disease without esophagitis; D63.1 Anemia in chronic kidney disease; E88.09 Other disorders of plasma-protein metabolism, not elsewhere classified; Z90.710 Acquired absence of both cervix and uterus; Z98.890 Other specified postprocedural states; Z88.0 Allergy status to penicillin; Z88.6 Allergy status to analgesic agent; Z88.8 Allergy status to other drugs, medicaments and biological substances; Z79.899 Other long term (current) drug therapy
CPT/HCPCS: 20225; 36216; 36217; 36415; 36430; 36600; 71045; 71250; 74176; 75726; 75774; 76705; 76770; 76937; 77012; 80048; 80053; 80069; 81001; 82247; 82248; 82803; 82947; 83010; 83735; 83880; 84100; 84484; 84550; 85014; 85018; 85025; 85610; 85730; 86850; 86900; 86901; 86923; 87086; 88305; 88311; 88341; 88342; 93005; 93010; 96374; 96375; 97116; 97162; 97166; 97530; 99152; 99153; 99285-25; A9270; C1760; C1769; C1887; C1894; G0378; J1170; J1630; J1644; J2250; J2270; J2405; J2783; J3010; J7030; J7050; J7070; J7120; P9016; P9053; Q9967